=== PATIENT | female | born 1995 | race Caucasian/White ===

== ENCOUNTER 2016-09-16 00:33 | Outpatient (CLI) | payer MEDICAID, OTHER ==
[~2016-09-16] VITALS: Ht 165.1 cm; Wt 109.0 kg
[~2016-09-16 00:33] MED LIST: ACET500C5 PO; BEN25 PO; CEPH-443 PO; IBUP800T25 PO; ONDA4TAB14 PO; [UNRECOGNIZED DRUG - CODE] TP
[2016-09-16 00:56] VITALS: Ht 165.1 cm; Wt 109.0 kg
[2016-09-16 00:57] VITALS: BP 141/66; PULSE 101; RESP 18
[2016-09-16 01:39] LABS: ADD SCAN DIFF NO
[2016-09-16 01:42] LABS: BASOPHILS % 0.2 % (0.0-2.0); EOSINOPHILS # 0.1 10^3/ul (0.0-0.5); HEMOGLOBIN 8.7 g/dl (12.0-16.0); LYMPHOCYTES # 2.3 10^3/ul (0.8-2.9); LYMPHOCYTES % 17.7 % (15.0-51.0); MEAN CORPUSCULAR HEMOGLOBIN 22.4 pg (29.0-33.0); MEAN CORPUSCULAR VOLUME 74.7 fl (82.0-101.0); MEAN PLATELET VOLUME 10.5 fl (7.4-10.4); MONOCYTE # 1.1 10^3/ul (0.3-0.9); MONOCYTES % 8.6 % (0.0-11.0); NEUTROPHIL # 9.2 10^3/ul (1.6-7.5); NEUTROPHILS % 71.3 % (39.0-77.0); NUCLEATED RED BLOOD CELLS% 0.2 /100WBC (0.0-0.0); PLATELET COUNT 282 10^3/UL (140-415); RED BLOOD COUNT 3.88 10^6/ul (4.20-5.40); RED CELL DISTRIBUTION WIDTH 17.3 % (11.5-14.5); WHITE BLOOD COUNT 12.9 10^3/ul (4.8-10.8)
--- NOTE | 2016-09-16 01:45 | PN ---
Date/Time of Note Date/Time of Note DATE: 09/16/16 TIME: 01:43 OB Subjective Subjective Subjective Patient is a 21-year-old 4 para 2 at 28 weeks and 2 days of gestation Patient's prior OB history significant for delivery at 36 weeks of gestation 2 She presents with abdominal pain and occasional contractions OB Objective Objective Objective NST reactive [place] irregular contractions OB Assessment/Plan Reason for admission: other Other Assessment: contractions Other plan: IV fluid OB ultrasound Follow-up with clinic in 2 days MELO GOLDMAN Sep 16, 2016 01:45
[2016-09-16 01:53] LABS: ADD UMIC YES; URINE BILIRUBIN (Dip) NEGATIVE (NEGATIVE); URINE BLOOD (Dip) TRACE (NEGATIVE); URINE COLOR YELLOW (YELLOW); URINE GLUCOSE (Dip) NEGATIVE (NEGATIVE); URINE KETONES (Dip) NEGATIVE (NEGATIVE); URINE LEUKOCYTE ESTERASE (Dip) 3+ (NEGATIVE); URINE NITRITE (Dip) NEGATIVE (NEGATIVE); URINE TOTAL PROTEIN (Dip) NEGATIVE (NEGATIVE); URINE UROBILINOGEN (Dip) 0.2 E.U./dL (0.1-1.0)
[2016-09-16 01:55] LABS: ALBUMIN 3.2 g/dl (3.3-4.9); POTASSIUM 3.5 mmol/L (3.5-5.1)
[2016-09-16 01:57] LABS: CREATININE 0.52 mg/dl (0.44-1.00)
[2016-09-16 01:58] LABS: ALBUMIN/GLOBULIN RATIO 0.94; TOTAL PROTEIN 6.6 g/dl (6.1-8.1)
[2016-09-16 01:59] LABS: CALCIUM 8.5 mg/dl (8.4-10.2)
[2016-09-16] MEDS ORDERED: LACTATED RINGER'S 1,000 ML IV ONE (02:00)
--- NOTE | 2016-09-16 02:05 | RADRPT ---
PROCEDURE: US OB. CLINICAL INDICATION: Contractions. TECHNIQUE: Multiple sonographic images of the pelvis were obtained. Transabdominal imaging only w as performed. The images were reviewed on a PACS workstation. COMPARISON: None. FINDINGS: Single live intrauterine is identified. Cardiac activity is present with 137 beats per mi nute. There is a vertex presentation. Measurements: BPD = 29 weeks 0 days. HC = 29 weeks 1 day. AC = 30 weeks 1 day. FL = 29 weeks 4 days. Estimated gestational age of approximately 29 weeks 3 days. The estimated date of delivery is 11/29/2016. The EFW = 1447 g which is at the 88th percentile. The placenta is posterior fundal. There is no evidence for an abruption or placenta previa. There is a normal amount of amniotic fluid with an CINDY = 14.42 cm. Cervix is 5.85 cm in length and closed. IMPRESSION: Single live intrauterine gestation of approximately 29 weeks 3 days. RPTAT: HMVK .Ridge Chavez MD, Date Time Electronically viewed and signed by .Ridge Chavez MD, on 09/16/2016 02:05 .K/
[2016-09-16 02:47] LABS: BACTERIA,URINE FEW; SQUAMOUS EPITHELIAL CELL,UR MANY
[2016-09-16] MEDS ORDERED: TERBUTALINE 1 MG/ML INJ SC ONE (03:30)
--- NOTE | 2016-09-16 06:31 | TRIAGE ---
OB Triage Datetime Report Generated by CPN: 09/16/2016 06:31 Datetime: 09/16/2016 04:44 Labor Evaluation Frequency: 0 Monitor Mode: External Duration (sec)2399: 0 Pattern: Normal: <= 5 Contractions in 10 Minutes Resting Tone [place]: Relaxed Heart Rate FHR Baseline Rate: 145 Monitor Mode: External US Variability: Moderate 6-25 bpm Accelerations: 15X15 Decelerations: None Category: Category I Datetime: 09/16/2016 04:40 Pain Assessment Pain Scale: 0 Pain Presence: None/Denies Pain Type: N/A Pain Goal: 0 Datetime: 09/16/2016 04:31 Contraction Comments: pt. denies feeling cramping, pain or UC's. Datetime: 09/16/2016 04:00 Labor Evaluation Frequency: occasional Monitor Mode: External Duration (sec)2399: 40 Quality: Mild Pattern: Normal: <= 5 Contractions in 10 Minutes Resting Tone [place]: Relaxed Heart Rate FHR Baseline Rate: 145 Monitor Mode: External US Variability: Moderate 6-25 bpm Accelerations: 10X10 Decelerations: None Category: Category I Datetime: 09/16/2016 03:00 Labor Evaluation Frequency: occasional Monitor Mode: External Duration (sec)2399: 40-50 Quality: Mild Pattern: Normal: <= 5 Contractions in 10 Minutes Resting Tone [place]: Relaxed Heart Rate FHR Baseline Rate: 145 Monitor Mode: External US Variability: Moderate 6-25 bpm Decelerations: None Category: Category I Datetime: 09/16/2016 02:00 Labor Evaluation Frequency: irregular Monitor Mode: External Duration (sec)2399: 40-60 Quality: Mild Pattern: Normal: <= 5 Contractions in 10 Minutes Resting Tone [place]: Relaxed Heart Rate FHR Baseline Rate: 140 Monitor Mode: External US Variability: Moderate 6-25 bpm Accelerations: 15X15 Decelerations: None Category: Category I Datetime: 09/16/2016 01:34 Stage of : OB Triage Datetime: 09/16/2016 01:15 EGA: 28.2 Datetime: 09/16/2016 01:00 Labor Evaluation Frequency: irregular Monitor Mode: External Duration (sec)2399: 40 Quality: Mild Pattern: Normal: <= 5 Contractions in 10 Minutes Resting Tone [place]: Relaxed Heart Rate FHR Baseline Rate: 140 Monitor Mode: External US Variability: Moderate 6-25 bpm Accelerations: 10X10 Decelerations: None Category: Category I Datetime: 09/16/2016 00:55 Stage of : OB Triage Assessment Type: Triage Maternal Assessment Level of Consciousness: Fully Conscious DTR's/Clonus: DTRs 2+; No Clonus Headache: Denies Blurred Vision: No Respiratory Effort: Unlabored Nausea/Vomiting: Denies RUQ Epigastric Pain: Denies Lower Extremities Edema: None Degree: None Upper Extremities Edema: None Degree: None Facial Edema: None Fall Risk Assessment History of Falling: (0) No Secondary Diagnosis: (0) No Ambulatory Aid: (0) Bedrest/Nurse Assist IV Therapy: (0) No Gait: (0) Normal/Bedrest/Immobile Mental Status: (0) Oriented to Own Ability Fall Score: 0 Fall Risk Score Definition: No Risk: No action required Datetime: 09/16/2016 00:54 Time of Arrival: 09/16/2016 00:14 Arrived By: Wheelchair Arrived From: Home Chief Complaint: back pain, abdominal pain q 30 mins - 1 hr. Movement: Present Contractions: Denies/Absent Rupture of Membranes: Denies Vaginal Bleeding: None Vaginal Discharge: Present Recent Sexual Intercouse: Denies Abdominal Trauma: Not Applicable Patient Complaints: Back Pain Time Provider Notified: 09/16/2016 01:02 Provider Notified: Khadijah Initial Plan: nst, cbc, cmp, UA, EFW, CINDY, cervical length
== END 2016-09-16 04:53 | disposition home or self-care (01) ==
LOC: OBT 00:33 → L-D 00:33 → OBT 04:53
PROVIDERS: ATTEND Obstetrics & Gynecology
DX: O60.03 Preterm labor without delivery, third trimester (principal); Z3A.28 28 weeks gestation of pregnancy
CPT/HCPCS: 76815; 76817; 80053; 81001; 85025; 87086; 96372; J3105; J7120; Z7500; 81003; G0463

== ENCOUNTER 2016-09-30 02:00 | Outpatient (CLI) | payer OTHER ==
[~2016-09-30] VITALS: Ht 162.6 cm; Wt 110.9 kg
[2016-09-30 02:15] VITALS: BP 162/70; PULSE 105; RESP 18
[2016-09-30] MEDS ORDERED: PRENAT PO (02:18)
[2016-09-30 03:09] LABS: ADD SCAN DIFF NO
[2016-09-30 03:25] LABS: ALBUMIN 3.2 g/dl (3.3-4.9); INR 1.01; PROTIME 13.3 Sec (12.2-14.2)
[2016-09-30 03:26] LABS: POTASSIUM 3.4 mmol/L (3.5-5.1)
[2016-09-30 03:28] LABS: ALBUMIN/GLOBULIN RATIO 0.88; CREATININE 0.53 mg/dl (0.44-1.00); TOTAL PROTEIN 6.8 g/dl (6.1-8.1)
[2016-09-30 03:29] LABS: CALCIUM 8.9 mg/dl (8.4-10.2); URIC ACID 3.8 mg/dl (3.1-7.9)
[2016-09-30 03:33] LABS: ABNORMAL IP MESSAGE 1; BASOPHILS % 0.3 % (0.0-2.0); EOSINOPHILS # 0.2 10^3/ul (0.0-0.5); EOSINOPHILS % 1.4 % (0.0-7.0); HEMATOCRIT 29.5 % (37.0-47.0); HEMOGLOBIN 8.5 g/dl (12.0-16.0); LYMPHOCYTES # 2.9 10^3/ul (0.8-2.9); LYMPHOCYTES % 22.1 % (15.0-51.0); MEAN CORPUSCULAR HEMOGLOBIN 21.5 pg (29.0-33.0); MEAN CORPUSCULAR HGB CONC 28.8 g/dl (32.0-37.0); MEAN CORPUSCULAR VOLUME 74.7 fl (82.0-101.0); MEAN PLATELET VOLUME 11.5 fl (7.4-10.4); MONOCYTES % 7.8 % (0.0-11.0); NEUTROPHIL # 8.9 10^3/ul (1.6-7.5); NEUTROPHILS % 67.6 % (39.0-77.0); PLATELET COUNT 302 10^3/UL (140-415); RED BLOOD COUNT 3.95 10^6/ul (4.20-5.40); RED CELL DISTRIBUTION WIDTH 18.1 % (11.5-14.5); WHITE BLOOD COUNT 13.2 10^3/ul (4.8-10.8)
--- NOTE | 2016-09-30 03:55 | RADRPT ---
PROCEDURE: ULTRASOUND BIOPHYSICAL PROFILE CLINICAL INDICATION: 21-year-old female in labor for viability. TECHNIQUE: Multiple sonographic images were obtained in order to perform a biophysical profile The images were reviewed on a PACS workstation. COMPARISON: None. FINDINGS: The cervix appears closed with a length of 5.0 cm. There is a single viable intrauterine gestation. There is a breech presentation. Cardiac activity is present at 143 beats per minute. The placenta is posterior and fundal. The results of the biophysical profile are as follows: breathing movement = 2/2 Gross body movement = 2/2 tone = 2/2 Qualitative amniotic fluid volume = 2/2 Amniotic fluid index equals 13.9 cm. This yields a biophysical profile score of 8/8. IMPRESSION: Biophysical profile score is 8/8. .Yang Reynolds MD, MD Date Time Electronically viewed and signed by .Yang Reynolds MD, MD on 09/30/2016 03:55 .M/
--- NOTE | 2016-09-30 03:57 | RADRPT ---
PROCEDURE: ULTRASOUND OBSTETRICAL CLINICAL INDICATION: 21-year-old female in labor for size and date determination. TECHNIQUE: Multiple sonographic images of the pelvis were obtained. The images were reviewed on a PACS workstation. COMPARISON: Ultrasound biophysical profile obtained concurrently. FINDINGS: There is a single viable intrauterine gestation. Cardiac activity is present with 157 beats per min drew. There is a breech presentation. Measurements were made in order to determine age. The res ults are as follows: BPD = 7.86 cm, HC = 28.48 cm, AC = 27.15 cm, FL = 6.19 cm. This yields and estimated gestational ag e of approximately 31 weeks 4 days. The estimated date of delivery is November 28, 2016. The EFW = 1785 +/- 268 g (3 lb 15 oz). The GP is 80%. The placenta is posterior and fundal. There is no evidence for an abruption or placenta previa. IMPRESSION: 1. Single viable intrauterine gestation of approximately 31 weeks 4 days with breech presentation. The estimated date of delivery is 11/2016. 2. The estimated weight is 1785 +/- 268 g (3 lb 15 oz). The GP is 80%. .Yang Reynolds MD, Date Time Electronically viewed and signed by .Yang Reynolds MD, on 09/30/2016 03:57 .Evelyn/
[2016-09-30 03:59] LABS: BILIRUBIN,INDIRECT 0.1 mg/dl (0-1.1); BILIRUBIN,TOTAL 0.1 mg/dl (0.2-1.3)
[2016-09-30 04:26] LABS: ADD UMIC YES; URINE BILIRUBIN (Dip) NEGATIVE (NEGATIVE); URINE BLOOD (Dip) NEGATIVE (NEGATIVE); URINE COLOR LT. YELLOW (YELLOW); URINE GLUCOSE (Dip) NEGATIVE (NEGATIVE); URINE KETONES (Dip) NEGATIVE (NEGATIVE); URINE LEUKOCYTE ESTERASE (Dip) 1+ (NEGATIVE); URINE NITRITE (Dip) NEGATIVE (NEGATIVE); URINE TOTAL PROTEIN (Dip) NEGATIVE (NEGATIVE); URINE UROBILINOGEN (Dip) 0.2 E.U./dL (0.1-1.0)
[2016-09-30 04:44] LABS: BACTERIA,URINE FEW; MUCUS,URINE FEW; SQUAMOUS EPITHELIAL CELL,UR FEW; URINE RBCS 0-2 /HPF (0)
--- NOTE | 2016-09-30 05:15 | QN ---
Documentation Comment OB Triage: #30+ wks GA for R/o PPROM ,Woke up an see some fluids around her,not sure if it was urine (smells urine)+FM No VB NoCTXs ROM plus:Neg CXL 5 cm CINDY>13 BPP / NST reassuring --->patient will return tomorrow for another NST/BPP --->precautions and instructions discussed with patient in details NATALY ZULETA M.D. Sep 30, 2016 05:15
--- NOTE | 2016-09-30 05:37 | TRIAGE ---
OB Triage Datetime Report Generated by CPN: 09/30/2016 05:37 Datetime: 09/30/2016 05:14 Heart Rate FHR Baseline Rate: 145 Monitor Mode: External US Datetime: 09/30/2016 05:08 Stage of : OB Triage Datetime: 09/30/2016 05:00 Stage of : OB Triage Monitor Mode: External US Comments: Baby active. Pt frequently changing position and difficult to monitor baby Datetime: 09/30/2016 03:56 Stage of : OB Triage Labor Evaluation Monitor Mode: External Quality: Mild Pattern: Normal: <= 5 Contractions in 10 Minutes Resting Tone [place]: Relaxed Heart Rate FHR Baseline Rate: 145 Monitor Mode: External US Pain Assessment Pain Scale: 3 Pain Presence: Intermittent Pain Type: Cramping Pain Location: Abdomen Datetime: 09/30/2016 02:45 Stage of : OB Triage Datetime: 09/30/2016 02:34 Labor Evaluation Monitor Mode: External Duration (sec)2399: 10-30SEC Quality: Mild Pattern: Normal: <= 5 Contractions in 10 Minutes Resting Tone [place]: Relaxed Heart Rate FHR Baseline Rate: 140 Monitor Mode: External US FHR Baseline Changes: No Baseline Change Variability: Moderate 6-25 bpm Accelerations: 15X15 Decelerations: None Category: Category I Pain Assessment Pain Scale: 4 Pain Presence: Intermittent Pain Type: Cramping Pain Location: Abdomen Vaginal Exam Dilatation (cms): 0.0 Effacement (%): 0 Station: -4 Exam By: E Petar Amniotic Fluid Amount: None Amniotic Fluid Odor: None Vaginal Bleeding: None Pool: Negative Nitrazine: Negative Cervix, Consistency: Firm Cervix, Position: Posterior Presentation 'A': Cephalic Lie 'A': Unable to Assess Datetime: 09/30/2016 02:06 Stage of : OB Triage Maternal Assessment Level of Consciousness: Fully Conscious DTR's/Clonus: DTRs 2+; No Clonus Headache: Denies Blurred Vision: No Respiratory Effort: Unlabored Nausea/Vomiting: Hx of Nausea/Vomiting RUQ Epigastric Pain: Denies Facial Edema: None Labor Evaluation Monitor Mode: External Resting Tone [place]: Relaxed Monitor Mode: External US Comments: FHT 150 Pain Assessment Pain Scale: 4 Pain Presence: Intermittent Pain Type: Cramping Pain Location: Abdomen Datetime: 09/30/2016 02:03 Time of Arrival: 09/30/2016 01:56 EGA: 30.2 Arrived By: Wheelchair Arrived From: Home Chief Complaint: w/ hx 2 PTD to triage w/ c/o waking up in large puddle of fluid at 0130. Movement: Present Contractions: Occasional Time Contractions Began: 09/30/2016 01:30 Rupture of Membranes: Unsure Vaginal Bleeding: None Vaginal Discharge: Present Recent Sexual Intercouse: Denies Abdominal Trauma: Not Applicable Patient Complaints: Cramping Time Provider Notified: 09/30/2016 02:45 Provider Notified: Dr Curiel Initial Plan: EFM,SVE,ROM,CVL,BPP,EFW,PIH panel Datetime: 09/16/2016 01:15 EGA: 28.2 Datetime: 09/16/2016 00:55 Fall Risk Assessment Fall Score: 0 Fall Risk Score Definition: No Risk: No action required
== END 2016-09-30 05:27 | disposition home or self-care (01) ==
LOC: OBT 02:00 → L-D 02:00 → OBT 05:27
PROVIDERS: ATTEND Obstetrics & Gynecology
DX: O42.913 Preterm premature rupture of membranes, unspecified as to length of time between rupture and onset of labor, third trimester (principal); Z3A.30 30 weeks gestation of pregnancy
CPT/HCPCS: 36415; 76815; 76817; 76818; 80053; 81001; 84112; 84560; 85025; 85610; 85730; Z7500; 81003; G0463

== ENCOUNTER 2016-09-30 13:51 | Outpatient (CLI) | payer OTHER ==
[~2016-09-30] VITALS: Ht 165.1 cm; Wt 111.3 kg
[~2016-09-30 13:51] MED LIST changes: -ACET500C5 PO; -BEN25 PO; -CEPH-443 PO; -IBUP800T25 PO; -ONDA4TAB14 PO; +PRENAT PO; -[UNRECOGNIZED DRUG - CODE] TP
[2016-09-30 14:10] VITALS: Ht 165.1 cm; Wt 111.3 kg
[2016-09-30 14:11] VITALS: BP 123/72; PULSE 108; RESP 20
[2016-09-30] MEDS ORDERED: TERBUTALINE 1 MG/ML INJ SC ONE (14:30)
--- NOTE | 2016-09-30 18:52 | TRIAGE ---
OB Triage Datetime Report Generated by CPN: 09/30/2016 18:51 Datetime: 09/30/2016 18:00 Frequency: NONE AT THIS TIME Pattern: Normal: <= 5 Contractions in 10 Minutes FHR Baseline Rate: 150 Monitor Mode: External US FHR Baseline Changes: No Baseline Change Variability: Moderate 6-25 bpm Accelerations: 15X15 Decelerations: None Category: Category I Pain Scale: 0 Pain Presence: None/Denies Pain Goal: 3 Membrane Status: Intact Datetime: 09/30/2016 16:40 Frequency: irreg Monitor Mode: External Quality: Mild Pattern: Normal: <= 5 Contractions in 10 Minutes Resting Tone [place]: Relaxed FHR Baseline Rate: 145 Monitor Mode: External US FHR Baseline Changes: No Baseline Change Variability: Moderate 6-25 bpm Accelerations: 15X15 Decelerations: None Category: Category I Pain Scale: 4 Pain Presence: Intermittent Pain Type: Contraction Pain Location: Abdomen Pain Goal: 4 Membrane Status: Intact Datetime: 09/30/2016 15:10 Frequency: IRREG Quality: Moderate Pattern: Normal: <= 5 Contractions in 10 Minutes Resting Tone [place]: Relaxed FHR Baseline Rate: 150 Monitor Mode: External US FHR Baseline Changes: No Baseline Change Variability: Moderate 6-25 bpm Accelerations: 15X15 Decelerations: None Category: Category I Pain Scale: 5 Pain Presence: Intermittent Pain Type: Contraction Pain Location: Abdomen Pain Goal: 5 Datetime: 09/30/2016 14:55 Monitor Mode: External Pattern: Normal: <= 5 Contractions in 10 Minutes Resting Tone [place]: Relaxed FHR Baseline Rate: 150 Monitor Mode: External US FHR Baseline Changes: No Baseline Change Variability: Moderate 6-25 bpm Accelerations: 15X15 Decelerations: None Category: Category I Pain Scale: 6 Pain Presence: Intermittent Pain Type: Contraction Pain Location: Abdomen Pain Goal: 3 Membrane Status: Intact Datetime: 09/30/2016 14:06 Level of Consciousness: Fully Conscious DTR's/Clonus: DTRs 2+ Headache: Denies Blurred Vision: No Nausea/Vomiting: Denies RUQ Epigastric Pain: Denies Facial Edema: None Pattern: Normal: <= 5 Contractions in 10 Minutes FHR Baseline Rate: 145 Monitor Mode: External US FHR Baseline Changes: No Baseline Change Variability: Moderate 6-25 bpm Accelerations: 15X15 Decelerations: None Category: Category I Pain Scale: 6 Pain Presence: Intermittent Pain Type: Contraction Pain Location: Abdomen Pain Goal: 4 Datetime: 09/30/2016 14:05 Time of Arrival: 09/30/2016 14:05 EGA: 30.2 Arrived By: Ambulatory Arrived From: Home Chief Complaint: LOWER ABD PAIN Movement: Decreased Rupture of Membranes: Denies Vaginal Bleeding: None Vaginal Discharge: Denies Recent Sexual Intercouse: Denies Abdominal Trauma: Not Applicable Patient Complaints: Contractions Initial Plan: EFM,CALL DR LAY Level of Consciousness: Fully Conscious DTR's/Clonus: DTRs 2+; No Clonus Headache: Denies Blurred Vision: No Respiratory Effort: Unlabored; Regular Rhythm; Equal Expansion Breath Sounds, Left: Clear and Equal Breath Sounds, Right: Clear and Equal Nausea/Vomiting: Denies RUQ Epigastric Pain: Denies Facial Edema: None Temperature Route: Axillary History of Falling: (0) No Secondary Diagnosis: (0) No Ambulatory Aid: (0) Bedrest/Nurse Assist IV Therapy: (0) No Gait: (0) Normal/Bedrest/Immobile Mental Status: (0) Oriented to Own Ability Fall Score: 0 Fall Risk Score Definition: No Risk: No action required Datetime: 09/30/2016 02:03 EGA: 30.2
--- NOTE | 2016-09-30 19:32 | PN ---
Date/Time of Note Date/Time of Note DATE: 09/30/16 TIME: 19:03 OB Subjective Subjective Subjective 21 yo P0202 @ 30.2 wks presents w ctx. Good FM, no LOF, no VB. Patient was seen in triage yesterday with the same complaints. She had a sono showing nml CINDY and cervical length of 5cm POB- x 2 @ 36wks OB Objective Objective Objective 123/72, 108, 20, 97.6 Abdomen- gravid, n/t SVE- l/c/p FHT- Cat I [place]- irreg ctx Abdomen: WNL Accelerations: Accelerations Present Decelerations: No Decelerations Varibility: Moderate Contractions on Admission: >10 Minutes Apart Intensity: Mild OB Assessment/Plan Other plan: 21 yo P0202 @ 30.2 wks, c/o ctx - she had a w/u yesterday, including sono and cervical length - exam today shows cervix to be l/c/p - patient reassured; will d/c home w strict PTL precautions; baby is breech; patient counselled to return immediately if ROM (as cord could prolapse), increase in ctx intensity and frequency, vaginal bleeding or decreased movement KYARA MCARTHUR MD Sep 30, 2016 19:29
== END 2016-09-30 18:55 | disposition home or self-care (01) ==
LOC: OBT 13:51 → L-D 13:51 → OBT 18:55
PROVIDERS: ATTEND Obstetrics & Gynecology
DX: O47.03 False labor before 37 completed weeks of gestation, third trimester (principal); Z3A.30 30 weeks gestation of pregnancy
CPT/HCPCS: J3105; Z7500; G0463

== ENCOUNTER 2016-10-01 10:43 | Outpatient (CLI) | payer OTHER ==
[~2016-10-01] VITALS: Ht 165.1 cm; Wt 111.4 kg
[2016-10-01 11:04] VITALS: Ht 165.1 cm; Wt 111.4 kg
[2016-10-01 11:05] VITALS: BP 110/57; PULSE 101; RESP 18
--- NOTE | 2016-10-01 12:45 | RADRPT ---
PROCEDURE: US OB. CLINICAL INDICATION: labor TECHNIQUE: Transabdominal OB views of the pelvis are available for review. COMPARISON: September 30, 2016 FINDINGS: Within the uterus, there is a single, live intrauterine . The presentation is now cephalic . The heart rate is 152 beats per minute. The cervix is noted to be closed, and transvaginally measures 4.9 cm. This is stable. The placenta is posterior, grade 2 to 3. IMPRESSION: 1. Single live intrauterine now in cephalic presentation. The cervix is closed and measu res 4.9 cm. RPTAT: QQ .Colleen Lara MD, MD Date Time Electronically viewed and signed by .Colleen Lara MD, MD on 10/01/2016 12:45 .F/
[2016-10-01] MEDS ORDERED: NIFEdipine 10 MG CAP ONE (13:14)
[2016-10-01] MEDS ORDERED: NIFEdipine 10 MG CAP PO ONE (13:17)
--- NOTE | 2016-10-01 13:29 | TRIAGE ---
OB Triage Datetime Report Generated by CPN: 10/01/2016 13:29 Datetime: 10/01/2016 13:07 Pattern: Normal: <= 5 Contractions in 10 Minutes Resting Tone [place]: Relaxed Contraction Comments: NO UC FHR Baseline Rate: 145 Monitor Mode: External US Variability: Moderate 6-25 bpm Accelerations: 15X15 Decelerations: None Category: Category I Pain Scale: 6 Pain Presence: Intermittent Pain Type: Cramping Pain Location: Abdomen Pain Goal: 3 Datetime: 10/01/2016 11:50 Frequency: X1 Monitor Mode: External Duration (sec)2399: 60 Quality: Mild Pattern: Normal: <= 5 Contractions in 10 Minutes Resting Tone [place]: Relaxed FHR Baseline Rate: 145 Monitor Mode: External US Variability: Moderate 6-25 bpm Accelerations: 15X15 Decelerations: None Category: Category I Pain Scale: 3 Pain Presence: Intermittent Pain Type: Cramping Pain Location: Abdomen Pain Goal: 3 Datetime: 10/01/2016 11:00 Stage of : OB Triage Level of Consciousness: Fully Conscious DTR's/Clonus: DTRs 2+; No Clonus Headache: Denies Blurred Vision: No Respiratory Effort: Unlabored; Regular Rhythm; Equal Expansion Breath Sounds, Left: Clear and Equal Breath Sounds, Right: Clear and Equal Nausea/Vomiting: Denies RUQ Epigastric Pain: Denies Lower Extremities Edema: None Degree: None Upper Extremities Edema: None Degree: None Facial Edema: None Temperature Route: Axillary History of Falling: (0) No Secondary Diagnosis: (0) No Ambulatory Aid: (0) Bedrest/Nurse Assist IV Therapy: (0) No Gait: (0) Normal/Bedrest/Immobile Mental Status: (0) Oriented to Own Ability Fall Score: 0 Fall Risk Score Definition: No Risk: No action required Frequency: cramps Monitor Mode: External Quality: Mild FHR Baseline Rate: 145 Monitor Mode: External US Variability: Moderate 6-25 bpm Accelerations: 15X15 Decelerations: None Pain Scale: 4 Pain Presence: Constant Pain Type: Cramping Pain Location: Abdomen Datetime: 10/01/2016 10:56 Time of Arrival: 10/01/2016 10:56 EGA: 30.3 Arrived By: Wheelchair Arrived From: Home Chief Complaint: cramping, follow up from yesterday Movement: Present Contractions: Occasional Time Contractions Began: 09/30/2016 17:00 Contractions: 30 Rupture of Membranes: Denies Vaginal Bleeding: None Vaginal Discharge: Denies Recent Sexual Intercouse: Denies Abdominal Trauma: Not Applicable Patient Complaints: Cramping Time Provider Notified: 10/01/2016 11:33 Provider Notified: andres Initial Plan: EFM/ U/S cxl
--- NOTE | 2016-10-01 15:50 | PN ---
DATE: 10/01/2016 The patient is a 21-year-old who presents at 30 weeks complaining of uterine cramping. The patient had been found to be positive movement. PAST MEDICAL HISTORY: None. PAST SURGICAL HISTORY: None. PHYSICAL EXAMINATION: VITAL SIGNS: Within normal limits. Within normal limits. Ultrasound shows a cervical greater than 3.5. ASSESSMENT: Intrauterine at 30 weeks. The patient is discharged home. Follow up in OB-GY N within 1-2 days. Dictated By: ESTER SHAW MD /NTS Conf#: [id number] DID#: [id number] CC: SARA OLIVARES MD;*EndCC*
== END 2016-10-01 13:20 | disposition home or self-care (01) ==
LOC: L-D 10:43 → OBT 10:43
PROVIDERS: ATTEND Obstetrics & Gynecology
DX: O62.9 Abnormality of forces of labor, unspecified (principal); Z3A.30 30 weeks gestation of pregnancy
CPT/HCPCS: 76817; Z7500; Z7610; G0463

== ENCOUNTER 2016-10-08 13:07 | Outpatient (CLI) | payer OTHER ==
[~2016-10-08] VITALS: Ht 165.1 cm; Wt 112.6 kg
[2016-10-08 13:27] VITALS: BP 129/66; PULSE 108; Ht 165.1 cm; Wt 112.6 kg
--- NOTE | 2016-10-08 14:16 | RADRPT ---
PROCEDURE: US OB. CLINICAL INDICATION: Fall. Pelvic pressure TECHNIQUE: Multiple sonographic images of the pelvis were obtained. The images were reviewed on a PACS workstation. COMPARISON: Ultrasound 10/01/2016 FINDINGS: The cervix is closed. There is a single viable intrauterine gestation. Cardiac activity is present with 152 beats per min [place]. There is a cephalic presentation. Measurements were made in order to determine age. The results are as follows: BPD =7.91 cm; 31 weeks 5-day HC =28.79 cm; 31 weeks 5 days AC =29.69 cm; 33 weeks 5-day FL =6.42 cm; 33 weeks 1 day. Estimated gestational age of approximately 32 weeks 4 days plus/minus 2 weeks 2 days. The estimated date of delivery is 11/29/2016. The EFW = 2124 g plus/minus 318 g . The placenta is fundal/right lateral and grade 1. There is no evidence for an abruption or placenta previa. There are no adnexal masses.. IMPRESSION: Single viable intrauterine gestation of approximately 32 weeks 4 days. The estimated date of delive ry is 11/29/2016 . .Kenia Cifuentes MD, Date Time Electronically viewed and signed by .Kenia Cifuentes MD, on 10/08/2016 14:16 .M/
--- NOTE | 2016-10-08 14:18 | RADRPT ---
PROCEDURE: US OB biophysical profile. CLINICAL INDICATION: decreased movements, pelvic pressure TECHNIQUE: Multiple sonographic images of the pelvis were obtained. The images were reviewed on a PACS workstation. COMPARISON: 10/08/16 FINDINGS: There is a single viable intrauterine gestation. Cardiac activity is present with 150 beats per min [place]. There is a vertex presentation. The placenta is fundal. There is no evidence of placental abruption. There is a normal amount of amniotic fluid with an CINDY = 15.7 cm. Biophysical profile: movement 2/2 tone 2/2. breathing 2/2 CINDY 2/2 Total 01/30 RPTAT: AA . IMPRESSION: Normal biophysical profile. . .Neymar Rizo MD, MD Date Time Electronically viewed and signed by .Neymar Rizo MD, MD on 10/08/2016 14:18 .S/
[2016-10-08] MEDS ORDERED: TERBUTALINE 1 ML ONE (15:44)
[2016-10-08] MEDS ORDERED: TERBUTALINE 1 MG/ML INJ SC ONE ×2 (16:00→16:20)
[2016-10-08] MEDS ORDERED: LACTATED RINGER'S 1,000 ML IV SCH (16:00)
--- NOTE | 2016-10-08 17:51 | QN ---
Documentation Comment pt co of increasing Ucx no lof no bleeding good FM vss exam wnl nst reactive a/p iup 31 weeks status post fall cbc,fibrinogen US ESTER SHAW MD Oct 08, 2016 17:51
[2016-10-08] MEDS ORDERED: ACETAMINOPHEN 325 MG TAB PO ONE (18:00)
[2016-10-08 18:29] LABS: ADD SCAN DIFF NO
[2016-10-08 18:34] LABS: BASOPHILS % 0.2 % (0.0-2.0); EOSINOPHILS % 0.3 % (0.0-7.0); HEMATOCRIT 25.1 % (37.0-47.0); HEMOGLOBIN 7.4 g/dl (12.0-16.0); LYMPHOCYTES # 2.3 10^3/ul (0.8-2.9); LYMPHOCYTES % 16.8 % (15.0-51.0); MEAN CORPUSCULAR HEMOGLOBIN 21.7 pg (29.0-33.0); MEAN CORPUSCULAR HGB CONC 29.5 g/dl (32.0-37.0); MEAN CORPUSCULAR VOLUME 73.6 fl (82.0-101.0); MEAN PLATELET VOLUME 10.8 fl (7.4-10.4); MONOCYTE # 1.1 10^3/ul (0.3-0.9); MONOCYTES % 8.1 % (0.0-11.0); NEUTROPHILS % 73.4 % (39.0-77.0); PLATELET COUNT 246 10^3/UL (140-415); RED BLOOD COUNT 3.41 10^6/ul (4.20-5.40); RED CELL DISTRIBUTION WIDTH 17.9 % (11.5-14.5); WHITE BLOOD COUNT 13.7 10^3/ul (4.8-10.8)
--- NOTE | 2016-10-08 19:01 | RADRPT ---
PROCEDURE: CERVICAL LENGTH ULTRASOUND CLINICAL INDICATION: Fall. TECHNIQUE: Trans-vaginal imaging of the cervical canal was performed utilizing martines-scale imaging. Sagittal and transverse images were obtained. Trans-abdominal images were also obtained. The taylor ges were reviewed on a PACS workstation. COMPARISON: 10/08/2016. FINDINGS: The cervix is closed with a length of 5.8 cm. There is a single live intrauterine . heart rate is 154 beats per minute. Position is cephalic and placenta is posterior, fundal, grade 2. IMPRESSION: 1. Cervical length measures 5.8 cm. RPTAT: HH .Maria Victoria Salas MD, Date Time Electronically viewed and signed by .Maria Victoria Salas MD, MD on 10/08/2016 19:01 .N/
--- NOTE | 2016-10-08 22:43 | QN ---
Documentation Comment Laborist 21 y.o. A2 with an IUP at 31w 3d s/p fall down stairs. Pt reports she was trying to keep her 1 y.o. from falling down the stairs but she fell and slid initially on her bottom and then rolled the last part. She tried to stop herself by grabbing the railing which didn't work but in doing so her waist hurts and her arm hurts. Does not specifically feel cramps in her pelvis now after IV hydration and terbutaline 0.25SQ x 2. No VB. No leaking. PMHx: recurrent kidney infections and some kind of biopsy of her kidneys at age 13. PSHx: appendectomy. NKDA. 129/66. T=97.8 BPP 8/8. CINDY 15.7. KB negative. EFW 2124 grams Cervical length 5.8cm. Hgb 7.4. NST 140-150 bpm with accels to 180 bpm. No decels. No UC's. A: IUP at 31w 3d. S/P fall. P: D/C IV and D/C home. ALEXSANDER LAY MD Oct 08, 2016 22:43
--- NOTE | 2016-10-08 23:54 | TRIAGE ---
OB Triage Datetime Report Generated by CPN: 10/08/2016 23:54 Datetime: 10/08/2016 22:25 Stage of : OB Triage Datetime: 10/08/2016 22:23 Stage of : OB Triage Datetime: 10/08/2016 21:58 Stage of : OB Triage Labor Evaluation Frequency: 0 Monitor Mode: External Resting Tone [place]: Relaxed Heart Rate FHR Baseline Rate: 150 Monitor Mode: External US Variability: Moderate 6-25 bpm Accelerations: 15X15 Decelerations: None Category: Category I Datetime: 10/08/2016 20:59 Stage of : OB Triage Labor Evaluation Frequency: 0 Monitor Mode: External Resting Tone [place]: Relaxed Heart Rate FHR Baseline Rate: 145 Monitor Mode: External US Variability: Moderate 6-25 bpm Accelerations: 15X15 Decelerations: None Category: Category I Datetime: 10/08/2016 20:54 Stage of : OB Triage Datetime: 10/08/2016 20:24 Stage of : OB Triage Datetime: 10/08/2016 20:19 Stage of : OB Triage Datetime: 10/08/2016 20:00 Stage of : OB Triage Labor Evaluation Frequency: 0 Monitor Mode: External Resting Tone [place]: Relaxed Heart Rate FHR Baseline Rate: 150 Monitor Mode: External US Variability: Moderate 6-25 bpm Accelerations: 15X15 Decelerations: None Category: Category I Datetime: 10/08/2016 19:53 Stage of : OB Triage Datetime: 10/08/2016 19:25 Stage of : OB Triage Datetime: 10/08/2016 19:12 Stage of : OB Triage Datetime: 10/08/2016 17:37 Stage of : OB Triage Datetime: 10/08/2016 16:27 Labor Evaluation Frequency: 5-6 Monitor Mode: External Duration (sec)2399: 30-40 Quality: Mild Resting Tone [place]: Relaxed Heart Rate FHR Baseline Rate: 150 Monitor Mode: External US Variability: Moderate 6-25 bpm Decelerations: None Category: Category II Pain Assessment Pain Scale: 5 Pain Presence: Intermittent Pain Type: Cramping Pain Location: Abdomen Pain Goal: 3 Pain Relief Measures: Comfort Measures Datetime: 10/08/2016 15:09 Labor Evaluation Frequency: 2-5 Monitor Mode: External Duration (sec)2399: 30-40 Quality: Mild Pattern: Normal: <= 5 Contractions in 10 Minutes Resting Tone [place]: Relaxed Heart Rate FHR Baseline Rate: 145 Monitor Mode: External US Variability: Moderate 6-25 bpm Accelerations: 10X10 Decelerations: None Category: Category I Pain Assessment Pain Scale: 5 Pain Presence: Intermittent Pain Type: Cramping Pain Goal: 3 Pain Relief Measures: Comfort Measures Datetime: 10/08/2016 14:16 Labor Evaluation Frequency: 0 Monitor Mode: External Pattern: Normal: <= 5 Contractions in 10 Minutes Resting Tone [place]: Relaxed Heart Rate FHR Baseline Rate: 145 Monitor Mode: External US Variability: Moderate 6-25 bpm Accelerations: 10X10 Decelerations: None Category: Category I Pain Assessment Pain Scale: 7 Pain Presence: Intermittent Pain Goal: 3 Datetime: 10/08/2016 13:22 Stage of : OB Triage Assessment Type: Triage Maternal Assessment Level of Consciousness: Fully Conscious DTR's/Clonus: DTRs 2+; No Clonus Headache: Denies Blurred Vision: No Respiratory Effort: Unlabored; Regular Rhythm; Equal Expansion Breath Sounds, Left: Clear and Equal Breath Sounds, Right: Clear and Equal Nausea/Vomiting: Denies RUQ Epigastric Pain: Denies Facial Edema: None Temperature Route: Axillary Fall Risk Assessment History of Falling: (0) No Secondary Diagnosis: (0) No Ambulatory Aid: (0) Bedrest/Nurse Assist IV Therapy: (0) No Gait: (0) Normal/Bedrest/Immobile Mental Status: (0) Oriented to Own Ability Fall Score: 0 Fall Risk Score Definition: No Risk: No action required Labor Evaluation Frequency: 0 Monitor Mode: External Resting Tone [place]: Relaxed Heart Rate FHR Baseline Rate: 145 Monitor Mode: External US Variability: Moderate 6-25 bpm Decelerations: None Category: Category II Pain Assessment Pain Scale: 8 Pain Presence: Intermittent Pain Type: Cramping Pain Location: Abdomen Pain Goal: 3 Pain Relief Measures: Comfort Measures Datetime: 10/08/2016 13:20 Time of Arrival: 10/08/2016 13:05 EGA: 31.3 Arrived By: Ambulatory Arrived From: Home Chief Complaint: FELL AT APPROX 1230 DOWN A FLIGHT OF STAIRS HITTING ABDOMEN ON RAILING, C/O VAGI NAL PRESSURE, CRAMPS. DENIES BLEEDING OR LEAKING OF FLUID Movement: Decreased Contractions: Occasional Rupture of Membranes: Denies Vaginal Bleeding: None Vaginal Discharge: Denies Recent Sexual Intercouse: Yes Abdominal Trauma: Fall Patient Complaints: Cramping Initial Plan: MONITOR, BPP/CINDY, KB, TYPE /RH, EFW,CBC, FIBRINOGEN,CL Datetime: 10/01/2016 11:00 Fall Score: 0 Fall Risk Score Definition: No Risk: No action required Datetime: 10/01/2016 10:56 EGA: 30.3 Datetime: 09/30/2016 14:05 EGA: 30.2 Fall Score: 0 Fall Risk Score Definition: No Risk: No action required Datetime: 09/30/2016 02:03 EGA: 30.2 Datetime: 09/16/2016 01:15 EGA: 28.2 Datetime: 09/16/2016 00:55 Fall Score: 0 Fall Risk Score Definition: No Risk: No action required
== END 2016-10-08 22:30 | disposition home or self-care (01) ==
LOC: OBT 13:07 → L-D 13:08 → OBT 22:30
PROVIDERS: ATTEND Obstetrics & Gynecology
DX: O9A.213 Injury, poisoning and certain other consequences of external causes complicating pregnancy, third trimester (principal); O62.9 Abnormality of forces of labor, unspecified; O36.8130 Decreased fetal movements, third trimester, not applicable or unspecified; R10.2 Pelvic and perineal pain; W10.9XXA Fall (on) (from) unspecified stairs and steps, initial encounter; Z3A.31 31 weeks gestation of pregnancy
CPT/HCPCS: 36415; 76815; 76817; 76818; 85025; 85384; 85460; 86900; 86901; 96360; 96361; 96372; J3105; J7120; Z7500; Z7610; G0463

== ENCOUNTER 2016-10-17 17:14 | Outpatient (CLI) | payer OTHER ==
[~2016-10-17] VITALS: Ht 165.1 cm; Wt 114.9 kg
[~2016-10-17 17:14] MED LIST changes: +ACET500C5 PO; +BEN25 PO; +CEPH-443 PO; +FERR-55 BC; +FERR28TA PO; +IBUP800T25 PO; +ONDA4TAB14 PO; +PNV1TABL43 PO; +[UNRECOGNIZED DRUG - CODE] TP
[2016-10-17 17:34] VITALS: Ht 165.1 cm; Wt 114.9 kg
[2016-10-17 17:35] VITALS: BP 129/61
--- NOTE | 2016-10-17 19:19 | RADRPT ---
PROCEDURE: Limited obstetric ultrasound CLINICAL INDICATION: Pain , contractions TECHNIQUE: Multiple transverse and longitudinal grayscale images of the pelvis were obtained shaver sabdominally and transvaginally.. COMPARISON: 10/08/2016 FINDINGS: The cervix is closed with a length of 5.1 cm. There is a single viable intrauterine gestation. Cardiac activity is present with 134 beats per min samish. The placenta is posterior fundal. There is no evidence for an abruption or placenta previa. RPTAT: AA IMPRESSION: Cervix length measures 5.1 cm. .Neymar Rizo MD, MD Date Time Electronically viewed and signed by .Neymar Rizo MD, on 10/17/2016 19:19 .S/
--- NOTE | 2016-10-17 20:36 | QN ---
Documentation Comment OB TRIAGE 21 y/o 32+ weeks with c/o pelvic pressure. Patient denies leakage of fluid or vaginal bleeding. Patient reports good movement. Afebrile VSS Abdomen soft NT Cervix closed OB ultrasound normal cervical length. Strip Reactive No sign of labor D/C home. ANTONI REYNAGA MD Oct 17, 2016 20:36
--- NOTE | 2016-10-17 20:46 | TRIAGE ---
OB Triage Datetime Report Generated by CPN: 10/17/2016 20:46 Datetime: 10/17/2016 20:35 Arrived From: Home Datetime: 10/17/2016 20:29 Labor Evaluation Frequency: NONE Monitor Mode: External Duration (sec)2399: NONE Heart Rate FHR Baseline Rate: 135 Monitor Mode: External US Variability: Moderate 6-25 bpm Accelerations: 15X15 Decelerations: None Category: Category I Datetime: 10/17/2016 20:25 Vaginal Exam Dilatation (cms): 0.0 Effacement (%): 0 Station: -3 Exam By: Dr. Delshad Membrane Status: Intact Datetime: 10/17/2016 20:18 Pain Assessment Pain Scale: 0 Pain Presence: None/Denies Pain Type: N/A Datetime: 10/17/2016 20:00 Labor Evaluation Frequency: NONE Monitor Mode: External Heart Rate FHR Baseline Rate: 135 Monitor Mode: External US Variability: Moderate 6-25 bpm Accelerations: 15X15 Decelerations: None Category: Category I Datetime: 10/17/2016 19:24 Monitor Mode: Palpation Resting Tone [place]: Relaxed Pain Assessment Pain Scale: 6 Pain Presence: Intermittent Pain Type: Cramping; Pressure Pain Location: Abdomen Datetime: 10/17/2016 18:46 Pain Assessment Pain Scale: 7 Pain Presence: Intermittent Pain Type: Cramping Pain Location: Abdomen Pain Goal: 3 Datetime: 10/17/2016 17:39 Stage of : OB Triage Assessment Type: Triage Maternal Assessment Level of Consciousness: Fully Conscious DTR's/Clonus: DTRs 2+; No Clonus Headache: Denies Blurred Vision: No Respiratory Effort: Unlabored; Regular Rhythm; Equal Expansion Breath Sounds, Left: Clear and Equal Breath Sounds, Right: Clear and Equal Nausea/Vomiting: Denies RUQ Epigastric Pain: Denies Lower Extremities Edema: None Degree: None Upper Extremities Edema: None Degree: None Facial Edema: None Temperature Route: Oral Fall Risk Assessment History of Falling: (0) No Secondary Diagnosis: (0) No Ambulatory Aid: (0) Bedrest/Nurse Assist IV Therapy: (0) No Gait: (0) Normal/Bedrest/Immobile Mental Status: (0) Oriented to Own Ability Fall Score: 0 Fall Risk Score Definition: No Risk: No action required Monitor Mode: External Heart Rate FHR Baseline Rate: 145 Monitor Mode: External US Variability: Moderate 6-25 bpm Accelerations: 15X15 Decelerations: None Category: Category I Pain Assessment Pain Scale: 7 Pain Presence: Intermittent Pain Type: Cramping; Contraction Pain Location: Abdomen Pain Goal: 3 Datetime: 10/08/2016 22:30 Time of Arrival: 10/17/2016 17:12 EGA: 32.5 Arrived By: Ambulatory Arrived From: Home Chief Complaint: PRESSSURE, UC'S Movement: Present Contractions: Regular Time Contractions Began: 10/17/2016 13:30 Contractions: X4/ HOUR Rupture of Membranes: Denies Vaginal Bleeding: None Vaginal Discharge: Denies Recent Sexual Intercouse: Denies Abdominal Trauma: Not Applicable Patient Complaints: Contractions Time Provider Notified: 10/17/2016 18:20 Provider Notified: DR. REID Initial Plan: EFMX2, CALL MD Datetime: 10/08/2016 13:22 Fall Score: 0 Fall Risk Score Definition: No Risk: No action required Datetime: 10/08/2016 13:20 EGA: 31.3 Datetime: 10/01/2016 11:00 Fall Score: 0 Fall Risk Score Definition: No Risk: No action required Datetime: 10/01/2016 10:56 EGA: 30.3 Datetime: 09/30/2016 14:05 EGA: 30.2 Fall Score: 0 Fall Risk Score Definition: No Risk: No action required Datetime: 09/30/2016 02:03 EGA: 30.2 Datetime: 09/16/2016 01:15 EGA: 28.2 Datetime: 09/16/2016 00:55 Fall Score: 0 Fall Risk Score Definition: No Risk: No action required
== END 2016-10-17 20:40 | disposition home or self-care (01) ==
LOC: OBT 17:14 → L-D 17:14 → OBT 20:40
PROVIDERS: ATTEND Obstetrics & Gynecology
DX: O26.893 Other specified pregnancy related conditions, third trimester (principal); R10.2 Pelvic and perineal pain; Z3A.32 32 weeks gestation of pregnancy
CPT/HCPCS: 76817; Z7500; G0463

== ENCOUNTER 2016-10-20 08:39 | Outpatient (CLI) | payer OTHER ==
[~2016-10-20 08:39] MED LIST changes: -ACET500C5 PO; -BEN25 PO; -CEPH-443 PO; -FERR-55 BC; -FERR28TA PO; -IBUP800T25 PO; -ONDA4TAB14 PO; -PNV1TABL43 PO; -[UNRECOGNIZED DRUG - CODE] TP
[2016-10-20 09:51] LABS: ADD UMIC YES; URINE BILIRUBIN (Dip) NEGATIVE (NEGATIVE); URINE BLOOD (Dip) NEGATIVE (NEGATIVE); URINE COLOR LT. YELLOW (YELLOW); URINE GLUCOSE (Dip) NEGATIVE (NEGATIVE); URINE KETONES (Dip) NEGATIVE (NEGATIVE); URINE LEUKOCYTE ESTERASE (Dip) 2+ (NEGATIVE); URINE NITRITE (Dip) NEGATIVE (NEGATIVE); URINE TOTAL PROTEIN (Dip) NEGATIVE (NEGATIVE); URINE UROBILINOGEN (Dip) 0.2 E.U./dL (0.1-1.0)
--- NOTE | 2016-10-20 10:41 | CONS ---
Date/Time of Note Date/Time of Note DATE: 10/20/16 TIME: 10:34 Assessment/Plan Assessment/Plan Additional Assessment/Plan 21 y/o at 33w 1d with cramping, no e/o ptl -discharge home -f/u with OB Consultation Date/Type/Reason Admit Date/Time Reason for Consultation cramping Hx of Present Illness 21 y/o at 33w 1d who presents with cramping since this morning. Denies LOF , VB, dysuria. +FM. PNC is inconsistent, [place] going [place] of the [place] 4 [place]. Recently seen at [facility]. Was seen here 2 days ago with normal cervical length. h/o x2 at 36 weeks, Sab x2. Per HPI. Other systems negative. Past Medical History Medical History: no pertinent history Past Surgical History kidney biopsy Past Surgical Hx: appendectomy Social History Denies habits. Exam/Review of Systems Exam Gen: NAD HEENT: NCAT CV: RRR Pulm: CTAB Abd: gravid, NT Back: no CVAT Ext: NT FHT: reactive [place]: no UCs Results Results 24 hrs Laboratory Tests Test 10/20/16 09:35 Urine Color LT. YELLOW Urine Clarity SLIGHTLY CLOUDY Urine pH 6.0 Urine Specific [place] >=1.030 H Urine Ketones NEGATIVE Urine Nitrite NEGATIVE Urine Bilirubin NEGATIVE Urine Urobilinogen 0.2 E.U./dL Urine Leukocyte Esterase 2+ H Urine Microscopic RBC 2-5 Urine Microscopic WBC 2-5 Urine Epithelial Cells RARE Urine Hemoglobin NEGATIVE Urine Glucose NEGATIVE Urine Total Protein NEGATIVE LUIZA HERNANDEZ Oct 20, 2016 10:41 am
--- NOTE | 2016-10-20 11:55 | TRIAGE ---
OB Triage Datetime Report Generated by CPN: 10/20/2016 11:54 Datetime: 10/20/2016 10:40 Stage of : OB Triage Datetime: 10/20/2016 10:27 Comments: PT SITTING UP ANXIOUS TO GO HOME.URINE RESULT PENDING.DR UAJE PRESEN T IN THE UNIT Datetime: 10/20/2016 10:13 Labor Evaluation Frequency: NONE Monitor Mode: External Pattern: Normal: <= 5 Contractions in 10 Minutes Resting Tone [place]: Relaxed Heart Rate FHR Baseline Rate: 145 Monitor Mode: External US FHR Baseline Changes: No Baseline Change Variability: Moderate 6-25 bpm Accelerations: 15X15 Decelerations: None Category: Category I Datetime: 10/20/2016 09:53 Monitor Mode: External US Datetime: 10/20/2016 09:37 Comments: U/A SENT Datetime: 10/20/2016 09:36 Labor Evaluation Frequency: OCCASIONAL Duration (sec)2399: 25-35 Quality: Mild Pattern: Normal: <= 5 Contractions in 10 Minutes Resting Tone [place]: Relaxed Contraction Comments: CRAMPS BY PT Heart Rate FHR Baseline Rate: 145 Monitor Mode: External US FHR Baseline Changes: No Baseline Change Variability: Moderate 6-25 bpm Accelerations: 15X15 Decelerations: None Category: Category I Datetime: 10/20/2016 08:52 Maternal Assessment Level of Consciousness: Fully Conscious DTR's/Clonus: DTRs 2+; No Clonus Headache: Denies Blurred Vision: No Respiratory Effort: Unlabored; Regular Rhythm; Equal Expansion Breath Sounds, Left: Clear and Equal Breath Sounds, Right: Clear and Equal Nausea/Vomiting: Denies RUQ Epigastric Pain: Denies Lower Extremities Edema: None Degree: None Upper Extremities Edema: None Degree: None Facial Edema: None Fall Risk Assessment History of Falling: (0) No Secondary Diagnosis: (0) No Ambulatory Aid: (0) Bedrest/Nurse Assist IV Therapy: (0) No Gait: (0) Normal/Bedrest/Immobile Mental Status: (0) Oriented to Own Ability Fall Score: 0 Fall Risk Score Definition: No Risk: No action required Datetime: 10/20/2016 08:48 Vaginal Exam Dilatation (cms): 0.5 Effacement (%): 0 Station: -4 Exam By: MJ Vaginal Bleeding: None Cervix, Consistency: Soft Cervix, Position: Posterior Presentation 'A': Unable to Assess Datetime: 10/20/2016 08:40 Time of Arrival: 10/20/2016 08:40 EGA: 33.1 Arrived By: Ambulance Arrived From: Office Chief Complaint: UCS FROM 629 TODAY Movement: Present Contractions: Occasional Time Contractions Began: 10/20/2016 06:30 Rupture of Membranes: Denies Vaginal Bleeding: None Vaginal Discharge: Denies Recent Sexual Intercouse: Denies Abdominal Trauma: Not Applicable Patient Complaints: Other Initial Plan: EFM,SVE Datetime: 10/17/2016 17:39 Fall Score: 0 Fall Risk Score Definition: No Risk: No action required Datetime: 10/08/2016 22:30 EGA: 32.5 Datetime: 10/08/2016 13:22 Fall Score: 0 Fall Risk Score Definition: No Risk: No action required Datetime: 10/08/2016 13:20 EGA: 31.3 Datetime: 10/01/2016 11:00 Fall Score: 0 Fall Risk Score Definition: No Risk: No action required Datetime: 10/01/2016 10:56 EGA: 30.3 Datetime: 09/30/2016 14:05 EGA: 30.2 Fall Score: 0 Fall Risk Score Definition: No Risk: No action required Datetime: 09/30/2016 02:03 EGA: 30.2 Datetime: 09/16/2016 01:15 EGA: 28.2 Datetime: 09/16/2016 00:55 Fall Score: 0 Fall Risk Score Definition: No Risk: No action required
== END 2016-10-20 10:40 | disposition home or self-care (01) ==
LOC: L-D 08:39 → OBT 08:39
PROVIDERS: ATTEND Obstetrics & Gynecology
DX: O26.893 Other specified pregnancy related conditions, third trimester (principal); R10.9 Unspecified abdominal pain; Z3A.33 33 weeks gestation of pregnancy
CPT/HCPCS: 81001; Z7500; 81003; G0463

== ENCOUNTER 2016-10-23 17:45 | Outpatient (CLI) | payer OTHER ==
[~2016-10-23] VITALS: Ht 165.1 cm; Wt 115.0 kg
[2016-10-23 18:45] VITALS: BP 115/58; PULSE 115; RESP 18
[2016-10-23 18:46] VITALS: Ht 165.1 cm; Wt 115.0 kg
[2016-10-23 20:21] LABS: ADD UMIC YES; URINE BILIRUBIN (Dip) NEGATIVE (NEGATIVE); URINE BLOOD (Dip) NEGATIVE (NEGATIVE); URINE COLOR LT. YELLOW (YELLOW); URINE GLUCOSE (Dip) NEGATIVE (NEGATIVE); URINE KETONES (Dip) NEGATIVE (NEGATIVE); URINE LEUKOCYTE ESTERASE (Dip) TRACE (NEGATIVE); URINE NITRITE (Dip) NEGATIVE (NEGATIVE); URINE TOTAL PROTEIN (Dip) NEGATIVE (NEGATIVE); URINE UROBILINOGEN (Dip) 0.2 E.U./dL (0.1-1.0)
[2016-10-23 20:42] LABS: TRICHOMONAS,URINE FEW; URINE RBCS 0-2 /HPF (0)
[2016-10-23 20:43] LABS: MUCUS,URINE FEW
[2016-10-23] MEDS ORDERED: TERBUTALINE 1 MG/ML INJ SC ONE (21:00)
--- NOTE | 2016-10-24 00:42 | QN ---
Documentation Comment Laborist [facility]/Dr Schwartz 21 y.o.A2 with an IUP at 35 weeks c/o LAP since 1500. Pt has been here multiple times with the same complaints and has always been found to not be in labor and has been sent home. No VB or leaking. PMHx: recurrent pyelo. Biopsy of her kidneys at age 13. PSHx: Appendectomy. POBHx: per pt she had 2 inductions for unclear reasons. Per her records she had an PTD at 26 weeks and the baby soon after, then a term baby, and then a baby at 32 weeks. NKDA. BP 115/50 T= 98. CX cl/th/high. NST: baseline 140 bpm with accels to 160 bpm. No decles. No UC's U/A negative. Pt was given p.o. hydration and one dose of SQ terbutaline and still reported the pain. However when I went in and talked to her and distracted her she appeared very comfortable, was laughing, had no heavy breathing nor huffing and puffing as reported by the RN. Discussed with the pt why it was important for the baby to stay in for at least 2 more weeks, if not 4 more weeks as she was hoping to be induced. A: IUP at 35 weeks. False labor. P: D/C home. ALEXSANDER LAY MD October 24, 2016 00:42
--- NOTE | 2016-10-24 00:45 | TRIAGE ---
OB Triage Datetime Report Generated by CPN: 10/24/2016 00:44 Datetime: 10/24/2016 00:00 Pain Presence: None/Denies Datetime: 10/23/2016 23:57 Stage of : OB Triage Datetime: 10/23/2016 23:00 Labor Evaluation Frequency: 0 Monitor Mode: External Pattern: Normal: <= 5 Contractions in 10 Minutes Heart Rate FHR Baseline Rate: 150 Monitor Mode: External US FHR Baseline Changes: No Baseline Change Variability: Moderate 6-25 bpm Accelerations: 15X15 Decelerations: None Category: Category I Datetime: 10/23/2016 21:30 Stage of : OB Triage Labor Evaluation Frequency: 0 Monitor Mode: External Quality: Mild Pattern: Normal: <= 5 Contractions in 10 Minutes Resting Tone [place]: Relaxed Heart Rate FHR Baseline Rate: 145 Monitor Mode: External US FHR Baseline Changes: No Baseline Change Variability: Moderate 6-25 bpm Accelerations: 15X15 Decelerations: None Category: Category I Datetime: 10/23/2016 21:00 Stage of : OB Triage Labor Evaluation Frequency: 0 Monitor Mode: External Pattern: Normal: <= 5 Contractions in 10 Minutes Heart Rate FHR Baseline Rate: 145 Monitor Mode: External US FHR Baseline Changes: No Baseline Change Variability: Moderate 6-25 bpm Accelerations: 15X15 Decelerations: None Category: Category I Datetime: 10/23/2016 20:48 Stage of : OB Triage Datetime: 10/23/2016 20:00 Labor Evaluation Frequency: 0 Monitor Mode: External Pattern: Normal: <= 5 Contractions in 10 Minutes Heart Rate FHR Baseline Rate: 145 Monitor Mode: External US FHR Baseline Changes: No Baseline Change Variability: Moderate 6-25 bpm Accelerations: 15X15 Decelerations: None Category: Category I Datetime: 10/23/2016 19:57 Vaginal Exam Dilatation (cms): 0.0 Effacement (%): 0 Station: -3 Exam By: PAULETTE Vaginal Bleeding: Scant Cervix, Consistency: Firm Cervix, Position: Posterior Datetime: 10/23/2016 19:30 Stage of : OB Triage Datetime: 10/23/2016 19:17 Stage of : OB Triage Maternal Assessment Level of Consciousness: Fully Conscious DTR's/Clonus: DTRs 2+; No Clonus Headache: Denies Blurred Vision: No Respiratory Effort: Unlabored; Regular Rhythm; Equal Expansion Breath Sounds, Left: Clear and Equal Breath Sounds, Right: Clear and Equal Nausea/Vomiting: Denies RUQ Epigastric Pain: Denies Lower Extremities Edema: None Degree: None Upper Extremities Edema: None Degree: None Facial Edema: None Temperature Route: Oral Fall Risk Assessment History of Falling: (0) No Secondary Diagnosis: (0) No Ambulatory Aid: (0) Bedrest/Nurse Assist IV Therapy: (0) No Gait: (0) Normal/Bedrest/Immobile Mental Status: (0) Oriented to Own Ability Fall Score: 0 Fall Risk Score Definition: No Risk: No action required Monitor Mode: External Monitor Mode: External US Pain Assessment Pain Scale: 0 Datetime: 10/23/2016 18:39 Stage of : OB Triage Maternal Assessment Level of Consciousness: Fully Conscious Breath Sounds, Left: Clear and Equal Breath Sounds, Right: Clear and Equal Nausea/Vomiting: Denies RUQ Epigastric Pain: Denies Lower Extremities Edema: Bilateral Lower Extremities Degree: 1+ Upper Extremities Edema: None Monitor Mode: External Heart Rate FHR Baseline Rate: 153 (Annotations: initial) Monitor Mode: External US Pain Assessment Pain Scale: 7 Pain Presence: Intermittent Pain Type: Contraction Pain Location: Abdomen Pain Relief Measures: Comfort Measures Datetime: 10/23/2016 18:36 Time of Arrival: 10/23/2016 18:36 EGA: 35.0 Arrived By: Ambulatory Arrived From: Home Chief Complaint: contractions and lower abd pressure Movement: Decreased Contractions: Occasional Time Contractions Began: 10/23/2016 13:30 Contractions: 30 Rupture of Membranes: Denies Vaginal Bleeding: None Vaginal Discharge: Denies Recent Sexual Intercouse: Denies Abdominal Trauma: Not Applicable Patient Complaints: Contractions Time Provider Notified: 10/23/2016 19:30 Provider Notified: DR LAY Initial Plan: efm/ u/s Datetime: 10/20/2016 08:52 Fall Score: 0 Fall Risk Score Definition: No Risk: No action required Datetime: 10/20/2016 08:40 EGA: 34.4 Datetime: 10/17/2016 17:39 Fall Score: 0 Fall Risk Score Definition: No Risk: No action required Datetime: 10/08/2016 22:30 EGA: 34.1 Datetime: 10/08/2016 13:22 Fall Score: 0 Fall Risk Score Definition: No Risk: No action required Datetime: 10/08/2016 13:20 EGA: 32.6 Datetime: 10/01/2016 11:00 Fall Score: 0 Fall Risk Score Definition: No Risk: No action required Datetime: 10/01/2016 10:56 EGA: 31.6 Datetime: 09/30/2016 14:05 EGA: 31.5 Fall Score: 0 Fall Risk Score Definition: No Risk: No action required Datetime: 09/30/2016 02:03 EGA: 31.5 Datetime: 09/16/2016 01:15 EGA: 29.5 Datetime: 09/16/2016 00:55 Fall Score: 0 Fall Risk Score Definition: No Risk: No action required
== END 2016-10-23 23:57 | disposition home or self-care (01) ==
LOC: OBT 17:45 → L-D 17:46 → OBT 23:40
PROVIDERS: ATTEND Obstetrics & Gynecology
DX: O47.03 False labor before 37 completed weeks of gestation, third trimester (principal); Z3A.35 35 weeks gestation of pregnancy
CPT/HCPCS: 81001; 87086; 96372; J3105; Z7500; 81003; G0463

== ENCOUNTER 2016-10-31 06:10 | Outpatient (CLI) | payer OTHER ==
[~2016-10-31] VITALS: Ht 165.1 cm; Wt 117.1 kg
[2016-10-31 06:26] VITALS: BP 106/57; PULSE 111; RESP 18; Ht 165.1 cm; Wt 117.1 kg
[2016-10-31] MEDS ORDERED: LACTATED RINGER'S 1,000 ML IV SCH (06:45)
--- NOTE | 2016-10-31 08:17 | RADRPT ---
PROCEDURE: US OB. CLINICAL INDICATION: labor TECHNIQUE: Multiple sonographic images of the pelvis were obtained. Transabdominal imaging only w as performed. The images were reviewed on a PACS workstation. COMPARISON: OB ultrasound dated 10/08/2016 FINDINGS: There is a single live intrauterine gestation. Cardiac activity is present with 154 beats per minut e. position is breech. Measurements were made in order to determine age. The results are as follows: BPD = 8.69 cm HC = 32.11 cm AC = 33.20 cm FL = 6.75 cm. Estimated gestational age of approximately 35 weeks 6 days. The estimated date of delivery is 11/29/2016. The EFW = 2873 g, 53.2 %ile. The placenta is posterior. There is no evidence for an abruption or placenta previa. There are no adnexal masses. IMPRESSION: 1. Single live intrauterine gestation of approximately 35 weeks 6 days, by ultrasound criteria. Th ere has been normal interval growth when compared to the prior examination. 2. The estimated date of delivery is 11/29/2016. 3. The estimated weight is 2873 g, 53.2 %ile. 4. Breech presentation RPTAT: HH .Saida Marie MD, Date Time Electronically viewed and signed by .Siada Marie MD, on 10/31/2016 08:17 .G/
--- NOTE | 2016-10-31 08:30 | RADRPT ---
PROCEDURE: US OB biophysical profile. Ultrasound cervix CLINICAL INDICATION: decreased movements, labor TECHNIQUE: Multiple sonographic images of the pelvis were obtained. The images were reviewed on a PACS workstation. In addition, transvaginal images of the cervix were obtained. COMPARISON: 10/17/16 FINDINGS: The cervix is closed and measures 5.1 cm in length. There is a Nabothian cyst in the cervix. There is a single viable intrauterine gestation. Cardiac activity is present with 154 beats per min drew. There is a breech presentation. The placenta is posterior. There is no evidence of placental abruption. There is a normal amount of amniotic fluid with an CINDY = 12.6 cm. Biophysical profile: movement 2/2 tone 2/2. breathing 2/2 CINDY 2/2 Total 01/30 RPTAT: AA . IMPRESSION: Normal biophysical profile. . .Neymar Rizo MD, MD Date Time Electronically viewed and signed by .Neymar Rizo MD, MD on 10/31/2016 08:29 .S/
[2016-10-31 09:15] LABS: ADD SCAN DIFF NO
[2016-10-31 09:19] LABS: ABNORMAL IP MESSAGE 1; BASOPHILS % 0.2 % (0.0-2.0); EOSINOPHILS # 0.1 10^3/ul (0.0-0.5); EOSINOPHILS % 0.9 % (0.0-7.0); HEMATOCRIT 26.8 % (37.0-47.0); HEMOGLOBIN 7.7 g/dl (12.0-16.0); LYMPHOCYTES # 2.3 10^3/ul (0.8-2.9); LYMPHOCYTES % 15.3 % (15.0-51.0); MEAN CORPUSCULAR HEMOGLOBIN 20.8 pg (29.0-33.0); MEAN CORPUSCULAR HGB CONC 28.7 g/dl (32.0-37.0); MEAN CORPUSCULAR VOLUME 72.4 fl (82.0-101.0); MEAN PLATELET VOLUME 11.6 fl (7.4-10.4); MONOCYTE # 1.3 10^3/ul (0.3-0.9); MONOCYTES % 8.5 % (0.0-11.0); NEUTROPHIL # 10.8 10^3/ul (1.6-7.5); NEUTROPHILS % 73.3 % (39.0-77.0); NUCLEATED RED BLOOD CELLS% 0.3 /100WBC (0.0-0.0); PLATELET COUNT 270 10^3/UL (140-415); WHITE BLOOD COUNT 14.8 10^3/ul (4.8-10.8)
[2016-10-31] MEDS ORDERED: TERBUTALINE 1 ML ONE (09:30)
[2016-10-31] MEDS ORDERED: TERBUTALINE 1 MG/ML INJ SC ONE (09:30)
[2016-10-31 09:31] LABS: ADD UMIC YES; URINE BILIRUBIN (Dip) NEGATIVE (NEGATIVE); URINE BLOOD (Dip) NEGATIVE (NEGATIVE); URINE COLOR LT. YELLOW (YELLOW); URINE GLUCOSE (Dip) NEGATIVE (NEGATIVE); URINE KETONES (Dip) NEGATIVE (NEGATIVE); URINE LEUKOCYTE ESTERASE (Dip) 1+ (NEGATIVE); URINE NITRITE (Dip) NEGATIVE (NEGATIVE); URINE TOTAL PROTEIN (Dip) TRACE (NEGATIVE); URINE UROBILINOGEN (Dip) 0.2 E.U./dL (0.1-1.0)
[2016-10-31 09:54] LABS: BACTERIA,URINE MODERATE; TRICHOMONAS,URINE FEW
--- NOTE | 2016-10-31 17:00 | CONS ---
Date/Time of Note Date/Time of Note DATE: 10/31/16 TIME: 16:50 Consultation Date/Type/Reason Admit Date/Time October 31, 2016 OB triage consult Reason for Consultation This patient is a 21 years old 5 para 2 living 2 AB 2 with estimated date of confinement of November 27, 2016 which makes her about 36 weeks and 1 day now. She had both of her previous deliveries at around 36 weeks, both of them induced due to gestational diabetes mellitus. During this her diabetes is not the significant. She came in complaining of contractions since 7:00 in the morning. In reviewing her past history both of her deliveries were vaginal spontaneous .She had appendectomy a few years ago she cannot remember the date. Does not give any history of any allergy .currently she is taking her vitamins only during this . The presentation is breech On examination she is a well-developed well-nourished lady near term . Her vital signs are normal ,blood pressure of 106/57 ,pulse rate 93, respiration 18, temperature 98.0 heart tone at this time is around 140s-150 bpm and she is describing her darren level somewhere between 5-6 out of 10. On examination she does not have much of a contraction ,abdomen is soft heart tone is normal . On pelvic examination cervix is closed about 60% effaced -3 station . we performed an ultrasound :estimated date of confinement was placed on November 29, 2016, estimated weight of the baby is 2873 g 53.2 g ,placenta is posterior posterior with no evidence of abruption or previa Her biophysical profile was reported 01/30 with CINDY of 12.6 cm. Laboratory Tests Test 10/31/16 06:30 10/31/16 07:52 Urine Color LT. YELLOW Urine Clarity CLEAR Urine pH 6.0 Urine Specific [place] 1.025 Urine Ketones NEGATIVE Urine Nitrite NEGATIVE Urine Bilirubin NEGATIVE Urine Urobilinogen 0.2 E.U./dL Urine Leukocyte Esterase 1+ Urine Microscopic RBC 2-5/HPF Urine Microscopic WBC 10-25/HPF Urine Epithelial Cells MODERATE Urine Bacteria MODERATE Urine Trichomonas FEW Urine Hemoglobin NEGATIVE Urine Glucose NEGATIVE% Urine Total Protein TRACE White Blood Count 14.810^3/ul Red Blood Count 3.7010^6/ul Hemoglobin 7.7g/dl Hematocrit 26.8% Mean Corpuscular Volume 72.4fl Mean Corpuscular Hemoglobin 20.8pg Mean Corpuscular Hemoglobin Concent 28.7g/dl Red Cell Distribution Width 19.0% Platelet Count 81032^3/UL Mean Platelet Volume 11.6fl Neutrophils % 73.3% Lymphocytes % 15.3% Monocytes % 8.5% Eosinophils % 0.9% Basophils % 0.2% Nucleated Red Blood Cells % 0.3/100WBC Neutrophils # 10.810^3/ul Lymphocytes # 2.310^3/ul Monocytes # 1.310^3/ul Eosinophils # 0.110^3/ul Basophils # 0.010^3/ul Nucleated Red Blood Cells # 0.010^3/ul Current Medications Medications (Trade) Dose Ordered Sig/[place] Route PRN Reason Start Time Stop Time Status Last Admin Dose Admin Lactated Ringer's 1,000 ml @ 500 mls/hr Q2H IV 10/31/16 06:45 10/31/16 07:54 500 MLS/HR Terbutaline Sulfate (Brethine) 1 ml @ ud STK-MED ONCE .ROUTE 10/31/16 09:30 10/31/16 09:31 DC Terbutaline Sulfate (Brethine) 0.25 mg ONCE ONCE SC 10/31/16 09:30 10/31/16 09:33 DC 10/31/16 13:42 0.25 MG Constitutional: No chills, No diaphoresis, No disoriented, No febrile, No improved, No no complaints, No other, No poor po, No requiring IVF, No requiring O2 Eyes: No discharge, No no complaints, No other, No pain, No redness, No visual change ENT: No bleeding, No congestion, No discharge, No dysphagia, No no complaints, No other, No pain, No sore throat Respiratory: No cough, No no complaints, No other, No pain, No pleuritic pain, No shortness of breath, No sputum, No wheezing Cardiovascular: No chest pain, No edema, No lightheadedness, No no complaints, No orthopenea, No other, No palpitations, No paroxysmal nocturnal dyspnea Gastrointestinal: No blood, No constipation, No decreased appetite, No diarrhea , No flatus, No nausea, No no complaints, No other, No pain, No passing stool, No vomiting Genitourinary: other (As I mentioned on pelvic exam the cervix is closed and cervix was 60% with head Shefali in the abdomen actually she is breech in presentation), No bleeding, No discharge, No dysuria, No flank pain, No hematuria, No no complaints Musculoskeletal: No back pain, No bone/joint pain, No neck pain, No no complaints, No other, No restricted range of motion, No swelling Skin: No bruising, No erythema, No laceration, No no complaints, No other, No pruritis, No rash, No skin lesions Neurologic: No confusion, No dizziness, No focal-weakness, No headache, No no complaints, No other, No seizure, No syncope Endocrine: No dry skin, No no complaints, No other, No polydypsia, No polyuria , No temp intolerance Psychological: No anxiety, No confusion, No depression, No nl mood/affect, No no complaints, No other, No suicidal Immunologic: No immunodeficiency, No no complaints, No other, No pruritis, No rhinitis, No urticaria Additional Comments Patient was given a Terbutaline injection as well as hydration. After an hour she does not have any contractions and will be discharged home. This patient is interested to have her delivery spontaneously and vaginally.However I mentioned if the breech persist her physician might decide to go ahead with section . Past Surgical History Past Surgical Hx: appendectomy Social History Smoking Status: Never smoker Exam/Review of Systems Vital Signs Vitals Vital Signs Date Time Temp Pulse Resp B/P Pulse Ox O2 Delivery O2 Flow Rate FiO2 10/31/16 06:26 98.0 111 18 106/57 Results Result Diagram: 10/31/16 0752 Results 24 hrs Laboratory Tests Test 10/31/16 06:30 10/31/16 07:52 Urine Color LT. YELLOW Urine Clarity CLEAR Urine pH 6.0 Urine Specific [place] 1.025 Urine Ketones NEGATIVE Urine Nitrite NEGATIVE Urine Bilirubin NEGATIVE Urine Urobilinogen 0.2 E.U./dL Urine Leukocyte Esterase 1+ H Urine Microscopic RBC 2-5 Urine Microscopic WBC 10-25 Urine Epithelial Cells MODERATE Urine Bacteria MODERATE Urine Trichomonas FEW Urine Hemoglobin NEGATIVE Urine Glucose NEGATIVE Urine Total Protein TRACE White Blood Count 14.8 H Red Blood Count 3.70 L Hemoglobin 7.7 L Hematocrit 26.8 L Mean Corpuscular Volume 72.4 L Mean Corpuscular Hemoglobin 20.8 L Mean Corpuscular Hemoglobin Concent 28.7 L Red Cell Distribution Width 19.0 H Platelet Count 270 Mean Platelet Volume 11.6 H Neutrophils % 73.3 Lymphocytes % 15.3 Monocytes % 8.5 Eosinophils % 0.9 Basophils % 0.2 Nucleated Red Blood Cells % 0.3 H Neutrophils # 10.8 H Lymphocytes # 2.3 Monocytes # 1.3 H Eosinophils # 0.1 Basophils # 0.0 Nucleated Red Blood Cells # 0.0 Medications Medications Current Medications Lactated Ringer's (Lr) 1,000 ml @ 500 mls/hr Q2H IV Last administered on t 07:54; Admin Dose 500 MLS/HR; Start 10/31/16 at 06:45 BURKE REID MD October 31, 2016 17:00
--- NOTE | 2016-10-31 17:23 | TRIAGE ---
OB Triage Datetime Report Generated by CPN: 10/31/2016 17:23 Datetime: 10/31/2016 16:34 Stage of : OB Triage Labor Evaluation Frequency: X1 Monitor Mode: External Resting Tone [place]: Relaxed Heart Rate FHR Baseline Rate: 135 Monitor Mode: External US FHR Baseline Changes: No Baseline Change Variability: Moderate 6-25 bpm Accelerations: 15X15 Decelerations: None Category: Category I Pain Assessment Pain Scale: 2 Pain Presence: Intermittent Pain Type: Cramping Pain Location: Back Pain Goal: 3 Pain Relief Measures: Comfort Measures Datetime: 10/31/2016 16:00 Stage of : OB Triage Labor Evaluation Frequency: X1 Monitor Mode: External Duration (sec)2399: 40 Quality: Mild Pattern: Normal: <= 5 Contractions in 10 Minutes Resting Tone [place]: Relaxed Heart Rate FHR Baseline Rate: 135 Monitor Mode: External US FHR Baseline Changes: No Baseline Change Variability: Moderate 6-25 bpm Accelerations: 15X15 Decelerations: None Category: Category I Pain Assessment Pain Scale: 2 Pain Presence: Intermittent Pain Type: Cramping Pain Location: Back Pain Goal: 3 Pain Relief Measures: Comfort Measures Datetime: 10/31/2016 15:18 Stage of : OB Triage Labor Evaluation Frequency: NONE Monitor Mode: External Resting Tone [place]: Relaxed Heart Rate FHR Baseline Rate: 135 Monitor Mode: External US FHR Baseline Changes: No Baseline Change Variability: Moderate 6-25 bpm Accelerations: 15X15 Decelerations: None Category: Category I Pain Assessment Pain Scale: 2 Pain Presence: Intermittent Pain Type: Cramping Pain Location: Back Pain Goal: 3 Pain Relief Measures: Comfort Measures Datetime: 10/31/2016 14:27 Stage of : OB Triage Labor Evaluation Frequency: NONE Monitor Mode: External Resting Tone [place]: Relaxed Contraction Comments: PT STATES FEELING MUCH BETTER THAN BEFORE AND FEELING A FEW UC'S. Heart Rate FHR Baseline Rate: 135 Monitor Mode: External US FHR Baseline Changes: No Baseline Change Variability: Moderate 6-25 bpm Accelerations: 15X15 Decelerations: None Category: Category I Pain Assessment Pain Scale: 3 Pain Presence: Intermittent Pain Type: Cramping Pain Location: Back Pain Goal: 3 Pain Relief Measures: Comfort Measures Datetime: 10/31/2016 14:00 Stage of : OB Triage Maternal Assessment Level of Consciousness: Fully Conscious DTR's/Clonus: DTRs 1+ Headache: Denies Breath Sounds, Left: Clear and Equal Breath Sounds, Right: Clear and Equal Nausea/Vomiting: Denies RUQ Epigastric Pain: Denies Labor Evaluation Frequency: IRREGULAR Monitor Mode: External Duration (sec)2399: 20-40 Quality: Mild Pattern: Normal: <= 5 Contractions in 10 Minutes Resting Tone [place]: Relaxed Heart Rate FHR Baseline Rate: 145 Monitor Mode: External US Variability: Moderate 6-25 bpm Accelerations: 15X15 Decelerations: None Category: Category I Pain Assessment Pain Scale: 7 Pain Presence: Intermittent Pain Type: Contraction Pain Location: Abdomen; Back Pain Goal: 3 Pain Relief Measures: Comfort Measures Membrane Status: Intact Datetime: 10/31/2016 13:13 Pain Assessment Pain Scale: 7 Pain Presence: Intermittent Pain Type: Contraction Pain Location: Abdomen Pain Goal: 3 Pain Relief Measures: Comfort Measures Pain Assessment Comments: PT C/O PAIN MD IN A Datetime: 10/31/2016 13:00 Stage of : OB Triage Maternal Assessment Level of Consciousness: Fully Conscious DTR's/Clonus: DTRs 1+ Headache: Denies Breath Sounds, Left: Clear and Equal Breath Sounds, Right: Clear and Equal Nausea/Vomiting: Denies RUQ Epigastric Pain: Denies Labor Evaluation Frequency: IRREGULAR Monitor Mode: External Duration (sec)2399: 20-40 Quality: Mild Pattern: Normal: <= 5 Contractions in 10 Minutes Resting Tone [place]: Relaxed Heart Rate FHR Baseline Rate: 145 Monitor Mode: External US Variability: Moderate 6-25 bpm Accelerations: 15X15 Decelerations: None Category: Category I Pain Assessment Pain Scale: 7 Pain Presence: Intermittent Pain Type: Contraction Pain Location: Abdomen; Back Pain Goal: 3 Pain Relief Measures: Comfort Measures Membrane Status: Intact Datetime: 10/31/2016 12:09 Vaginal Exam Dilatation (cms): 0.0 Effacement (%): 0 Station: -4 Exam By: LAURA SHOEMAKER Vaginal Bleeding: None Cervix, Consistency: Soft Cervix, Position: Posterior Datetime: 10/31/2016 12:00 Stage of : OB Triage Maternal Assessment Level of Consciousness: Fully Conscious DTR's/Clonus: DTRs 1+ Headache: Denies Breath Sounds, Left: Clear and Equal Breath Sounds, Right: Clear and Equal Nausea/Vomiting: Denies RUQ Epigastric Pain: Denies Labor Evaluation Frequency: IRREGULAR Monitor Mode: External Duration (sec)2399: 20-40 Quality: Mild Pattern: Normal: <= 5 Contractions in 10 Minutes Resting Tone [place]: Relaxed Heart Rate FHR Baseline Rate: 145 Monitor Mode: External US Variability: Moderate 6-25 bpm Accelerations: 15X15 Decelerations: None Category: Category I Pain Assessment Pain Scale: 7 Pain Presence: Intermittent Pain Type: Contraction Pain Location: Abdomen; Back Pain Goal: 3 Pain Relief Measures: Comfort Measures Membrane Status: Intact Datetime: 10/31/2016 11:14 Stage of : OB Triage Datetime: 10/31/2016 11:00 Stage of : OB Triage Maternal Assessment Level of Consciousness: Fully Conscious DTR's/Clonus: DTRs 1+ Headache: Denies Breath Sounds, Left: Clear and Equal Breath Sounds, Right: Clear and Equal Nausea/Vomiting: Denies RUQ Epigastric Pain: Denies Labor Evaluation Frequency: IRREGULAR Monitor Mode: External Duration (sec)2399: 20-40 Quality: Mild Pattern: Normal: <= 5 Contractions in 10 Minutes Resting Tone [place]: Relaxed Heart Rate FHR Baseline Rate: 145 Monitor Mode: External US Variability: Moderate 6-25 bpm Accelerations: 15X15 Decelerations: None Category: Category I Pain Presence: Intermittent Pain Type: Contraction Pain Location: Abdomen; Back Pain Goal: 3 Pain Relief Measures: Comfort Measures Membrane Status: Intact Datetime: 10/31/2016 10:57 Stage of : OB Triage Datetime: 10/31/2016 10:31 Contraction Comments: PT STATES THAT SHE'S BEEN MOVING HER OWN TOCO TO MONITOR HER OWN CONTRACTI ONS. PT INSTRUCTED NOT TO TOUCH TOCO Datetime: 10/31/2016 10:00 Stage of : OB Triage Monitor Mode: External (Annotations: ADJUSTED PT STATES FEELING UC'S AND UNBALE TO MONITOR THEM, A BD PALPABLE AND FEEL SOFT AT THIS TIME ) Datetime: 10/31/2016 09:55 Stage of : OB Triage Maternal Assessment Level of Consciousness: Fully Conscious DTR's/Clonus: DTRs 1+ Headache: Denies Breath Sounds, Left: Clear and Equal Breath Sounds, Right: Clear and Equal Nausea/Vomiting: Denies RUQ Epigastric Pain: Denies Labor Evaluation Frequency: 2-6 Monitor Mode: External Duration (sec)2399: 20-60 Quality: Mild Pattern: Normal: <= 5 Contractions in 10 Minutes Resting Tone [place]: Relaxed Heart Rate FHR Baseline Rate: 145 Monitor Mode: External US Variability: Moderate 6-25 bpm Accelerations: 15X15 Decelerations: None Category: Category I Pain Assessment Pain Scale: 5 Pain Presence: Intermittent Pain Type: Contraction Pain Location: Abdomen; Back Pain Goal: 3 Pain Relief Measures: Comfort Measures Membrane Status: Intact Datetime: 10/31/2016 09:00 Stage of : OB Triage Maternal Assessment Level of Consciousness: Fully Conscious DTR's/Clonus: DTRs 1+ Headache: Denies Breath Sounds, Left: Clear and Equal Breath Sounds, Right: Clear and Equal Nausea/Vomiting: Denies RUQ Epigastric Pain: Denies Labor Evaluation Frequency: 2-6 Monitor Mode: External Duration (sec)2399: 40-60 Quality: Mild Pattern: Normal: <= 5 Contractions in 10 Minutes Resting Tone [place]: Relaxed Heart Rate FHR Baseline Rate: 145 Monitor Mode: External US Variability: Moderate 6-25 bpm Accelerations: 15X15 Decelerations: None Category: Category I Pain Assessment Pain Scale: 5 Pain Presence: Intermittent Pain Type: Contraction Pain Location: Abdomen; Back Pain Goal: 3 Pain Relief Measures: Comfort Measures Vaginal Exam Dilatation (cms): 0.0 Effacement (%): 0 Station: -4 Exam By: RRAMIREZ,RN Membrane Status: Intact Datetime: 10/31/2016 07:56 Stage of : OB Triage Maternal Assessment Level of Consciousness: Fully Conscious DTR's/Clonus: DTRs 1+ Headache: Denies Breath Sounds, Left: Clear and Equal Breath Sounds, Right: Clear and Equal Nausea/Vomiting: Denies RUQ Epigastric Pain: Denies Labor Evaluation Frequency: 2-4 Monitor Mode: External Duration (sec)2399: 40-60 Quality: Mild Pattern: Normal: <= 5 Contractions in 10 Minutes Resting Tone [place]: Relaxed Heart Rate FHR Baseline Rate: 145 Monitor Mode: External US Variability: Moderate 6-25 bpm Accelerations: 15X15 Decelerations: None Category: Category I Pain Assessment Pain Scale: 5 Pain Presence: Intermittent Pain Type: Contraction Pain Location: Abdomen; Back Pain Goal: 3 Pain Relief Measures: Comfort Measures Membrane Status: Intact Datetime: 10/31/2016 07:26 Maternal Assessment Level of Consciousness: Fully Conscious DTR's/Clonus: DTRs 1+ Headache: Denies Blurred Vision: No Respiratory Effort: Unlabored Breath Sounds, Left: Clear and Equal Breath Sounds, Right: Clear and Equal Nausea/Vomiting: Denies RUQ Epigastric Pain: Denies Facial Edema: None Labor Evaluation Frequency: 2-4 Monitor Mode: External Duration (sec)2399: 40-60 Quality: Mild Pattern: Normal: <= 5 Contractions in 10 Minutes Resting Tone [place]: Relaxed Heart Rate FHR Baseline Rate: 145 Monitor Mode: External US Variability: Moderate 6-25 bpm Accelerations: 15X15 Decelerations: None Category: Category I Pain Assessment Pain Scale: 5 Pain Presence: Intermittent Pain Type: Contraction Pain Location: Abdomen; Back Pain Goal: 3 Pain Relief Measures: Comfort Measures Membrane Status: Intact Datetime: 10/31/2016 06:45 Stage of : OB Triage Datetime: 10/31/2016 06:36 Stage of : OB Triage Vaginal Exam Dilatation (cms): 0.0 Effacement (%): 60 Station: -3 Exam By: ZENON [employer] Membrane Status: Intact Datetime: 10/31/2016 06:32 Stage of : OB Triage Maternal Assessment Level of Consciousness: Fully Conscious DTR's/Clonus: DTRs 2+; No Clonus Headache: Denies Blurred Vision: No Respiratory Effort: Unlabored; Regular Rhythm; Equal Expansion Breath Sounds, Left: Clear and Equal Breath Sounds, Right: Clear and Equal Nausea/Vomiting: Denies RUQ Epigastric Pain: Denies Lower Extremities Edema: None Upper Extremities Edema: None Facial Edema: None Temperature Route: Oral Fall Risk Assessment History of Falling: (0) No Secondary Diagnosis: (0) No Ambulatory Aid: (0) Bedrest/Nurse Assist IV Therapy: (0) No Gait: (0) Normal/Bedrest/Immobile Mental Status: (0) Oriented to Own Ability Fall Score: 0 Fall Risk Score Definition: No Risk: No action required Labor Evaluation Frequency: X1 Monitor Mode: External Duration (sec)2399: 50 Quality: Strong Resting Tone [place]: Relaxed Heart Rate FHR Baseline Rate: 150 Monitor Mode: External US Variability: Moderate 6-25 bpm Accelerations: None Decelerations: None Category: Category II Pain Assessment Pain Scale: 6 Pain Presence: Intermittent Pain Type: Contraction Pain Location: Abdomen Pain Goal: 3 Pain Relief Measures: Comfort Measures Datetime: 10/31/2016 06:31 Time of Arrival: 10/31/2016 06:12 EGA: 36.1 Chief Complaint: PT C/O ABDOMEN PAIN Movement: Present Contractions: Irregular Time Contractions Began: 10/31/2016 04:00 Rupture of Membranes: Denies Vaginal Bleeding: None Vaginal Discharge: Denies Recent Sexual Intercouse: Denies Abdominal Trauma: Not Applicable Patient Complaints: Contractions Additional Patient Complaints: TOCO AND EFM APPLIED, SVE Time Provider Notified: 10/31/2016 06:45 Provider Notified: MARSHALL Initial Plan: BPP , CINDY, EFW AND IV HYDRATION Datetime: 10/23/2016 19:17 Fall Score: 0 Fall Risk Score Definition: No Risk: No action required Datetime: 10/23/2016 18:36 EGA: 35.0 Datetime: 10/20/2016 08:52 Fall Score: 0 Fall Risk Score Definition: No Risk: No action required Datetime: 10/20/2016 08:40 EGA: 34.4 Datetime: 10/17/2016 17:39 Fall Score: 0 Fall Risk Score Definition: No Risk: No action required Datetime: 10/08/2016 22:30 EGA: 34.1 Datetime: 10/08/2016 13:22 Fall Score: 0 Fall Risk Score Definition: No Risk: No action required Datetime: 10/08/2016 13:20 EGA: 32.6 Datetime: 10/01/2016 11:00 Fall Score: 0 Fall Risk Score Definition: No Risk: No action required Datetime: 10/01/2016 10:56 EGA: 31.6 Datetime: 09/30/2016 14:05 EGA: 31.5 Fall Score: 0 Fall Risk Score Definition: No Risk: No action required Datetime: 09/30/2016 02:03 EGA: 31.5 Datetime: 09/16/2016 01:15 EGA: 29.5 Datetime: 09/16/2016 00:55 Fall Score: 0 Fall Risk Score Definition: No Risk: No action required
== END 2016-10-31 16:45 | disposition home or self-care (01) ==
LOC: OBT 06:10 → L-D 06:10 → OBT 16:45
PROVIDERS: ATTEND Obstetrics & Gynecology
DX: O62.9 Abnormality of forces of labor, unspecified (principal); O36.8130 Decreased fetal movements, third trimester, not applicable or unspecified; O60.03 Preterm labor without delivery, third trimester; Z86.32 Personal history of gestational diabetes; Z3A.36 36 weeks gestation of pregnancy
CPT/HCPCS: 76816; 76817; 76818; 81001; 85025; 87086; J3105; J7120; 81003; 96360; 96361; G0463

== ENCOUNTER 2016-11-13 13:31 | Outpatient (CLI) | payer OTHER ==
--- NOTE | 2016-11-13 14:39 | RADRPT ---
PROCEDURE: OB ultrasound for biophysical profile CLINICAL INDICATION: Decreased movement TECHNIQUE: Multiple sonographic images of the pelvis were obtained. Transabdominal view of the gr avid uterus are available for review. The images were reviewed on a PACS workstation. COMPARISON: OB ultrasound 10/31/2016 FINDINGS: breathing movement = 2/2 tone = 2/2 motion = 2/2 CINDY = 2/2 CINDY = 8.4 cm Single live intrauterine with cardiac activity. heart rate equals 146 beats p er minute. Presentation is cephalic. The placenta is posterior, grade 2. IMPRESSION: 1. Single viable intrauterine gestation. 2. Biophysical profile = 8/8. 3. CINDY = 8.4 cm. RPTAT: KK .Geoffrey Anand MD, MD Date Time Electronically viewed and signed by .Geoffrey Anand MD, MD on 11/13/2016 14:39 .B/
--- NOTE | 2016-11-13 14:40 | RADRPT ---
PROCEDURE: US OB. CLINICAL INDICATION: Size and dates , decreased movement TECHNIQUE: Multiple sonographic images of the pelvis and gravid uterus were obtained. The images were reviewed on a PACS workstation. COMPARISON: 10/31/2016 FINDINGS: There is a single viable intrauterine gestation. Cardiac activity is present with 150 beats per min [place]. There is a vertex presentation. The placenta is anterior. There is no evidence for an abruption or placenta previa. There is a normal amount of amniotic fluid with an CINDY = 8.4 cm. Measurements were made in order to determine age. The results are as follows: BPD =8.8 cm HC =31.6 cm AC =33 cm FL =7.6 cm Estimated gestational age of approximately 36 weeks and 5 days based on ultrasound measurements. Clinical age: 38 weeks and 0 days. The estimated date of delivery is 12/06/16, based on ultrasound measurements. The EFW = 3097 g, 36.7%, based on LMP age. RPTAT: AA IMPRESSION: Single viable intrauterine gestation of approximately 36 weeks and 5 days based on ultrasound measu rements. .Neymar Rizo MD, Date Time Electronically viewed and signed by .Neymar Rizo MD, on 11/13/2016 14:40 .S/
[2016-11-13] MEDS ORDERED: DEXTROSE 5%-LR 1,000 ML IV SCH (16:30)
--- NOTE | 2017-01-11 18:32 | PN ---
Triage Information Date/Time 11/13/16 Weeks of Gestation 38 : 2 Para: 1 Assessment/Plan DECREASE MOVEMENT SARA OLIVARES MD Jan 11, 2017 18:32
== END 2016-11-13 16:30 | disposition home or self-care (01) ==
LOC: OBT 13:31 → L-D 13:31 → UNDOADMIN 13:31 → L-D 13:31 → OBT 16:30 → EDSTATUS 11-27 13:28
PROVIDERS: ATTEND Obstetrics & Gynecology
DX: O36.8130 Decreased fetal movements, third trimester, not applicable or unspecified (principal); Z3A.38 38 weeks gestation of pregnancy
CPT/HCPCS: 76816; 76818; J7121

== ENCOUNTER 2016-11-19 23:20 | Outpatient (CLI) | payer OTHER ==
[~2016-11-19] VITALS: Ht 165.1 cm; Wt 121.7 kg
[2016-11-19 23:26] VITALS: BP 125/63; PULSE 127; RESP 18
[2016-11-19 23:35] VITALS: Ht 165.1 cm; Wt 121.7 kg
[2016-11-20 00:20] LABS: ADD UMIC YES; URINE BILIRUBIN (Dip) NEGATIVE (NEGATIVE); URINE BLOOD (Dip) NEGATIVE (NEGATIVE); URINE COLOR LT. YELLOW (YELLOW); URINE GLUCOSE (Dip) NEGATIVE (NEGATIVE); URINE KETONES (Dip) NEGATIVE (NEGATIVE); URINE LEUKOCYTE ESTERASE (Dip) 1+ (NEGATIVE); URINE NITRITE (Dip) NEGATIVE (NEGATIVE); URINE TOTAL PROTEIN (Dip) NEGATIVE (NEGATIVE); URINE UROBILINOGEN (Dip) 0.2 E.U./dL (0.1-1.0)
[2016-11-20 00:41] LABS: BACTERIA,URINE OCCASIONAL; SQUAMOUS EPITHELIAL CELL,UR MANY; URINE RBCS 0-2 /HPF (0)
--- NOTE | 2016-11-20 01:00 | RADRPT ---
PROCEDURE: OB ultrasound for biophysical profile CLINICAL INDICATION: Biophysical profile. . TECHNIQUE: Multiple sonographic images of the pelvis were obtained. Transabdominal views are obta ined. COMPARISON: 11/13/2016 FINDINGS: Single intrauterine gestation. Presentation: Cephalic. Placenta: Posterior No evidence of placental abruption. No evidence of placenta previa. breathing movement = 2/2 tone = 2/2 motion = 2/2 CINDY = 2/2 CINDY = 13.5 cm heart rate: 144 beats per minute IMPRESSION: Single intrauterine gestation. Biophysical profile 01/30 RPTAT: AADD .Edin Pichardo MD, MD Date Time Electronically viewed and signed by .Edin Pichardo MD, on 11/20/2016 01:00 .B/
[2016-11-20 01:50] LABS: ADD SCAN DIFF NO
[2016-11-20 01:55] LABS: ABNORMAL IP MESSAGE 1; BASOPHILS % 0.1 % (0.0-2.0); EOSINOPHILS # 0.1 10^3/ul (0.0-0.5); EOSINOPHILS % 0.9 % (0.0-7.0); HEMATOCRIT 24.6 % (37.0-47.0); HEMOGLOBIN 7.2 g/dl (12.0-16.0); LYMPHOCYTES # 2.4 10^3/ul (0.8-2.9); LYMPHOCYTES % 17.1 % (15.0-51.0); MEAN CORPUSCULAR HEMOGLOBIN 20.4 pg (29.0-33.0); MEAN CORPUSCULAR HGB CONC 29.3 g/dl (32.0-37.0); MEAN CORPUSCULAR VOLUME 69.7 fl (82.0-101.0); MEAN PLATELET VOLUME 11.3 fl (7.4-10.4); MONOCYTE # 1.2 10^3/ul (0.3-0.9); NEUTROPHIL # 9.7 10^3/ul (1.6-7.5); NEUTROPHILS % 70.2 % (39.0-77.0); NUCLEATED RED BLOOD CELLS # 0.1 10^3/ul (0.0-0.0); NUCLEATED RED BLOOD CELLS% 0.4 /100WBC (0.0-0.0); PLATELET COUNT 311 10^3/UL (140-415); RED BLOOD COUNT 3.53 10^6/ul (4.20-5.40); RED CELL DISTRIBUTION WIDTH 19.5 % (11.5-14.5); WHITE BLOOD COUNT 13.8 10^3/ul (4.8-10.8)
[2016-11-20] MEDS ORDERED: ACETAMINOPHEN 500 MG TAB PO STA (02:07)
[2016-11-20 02:19] LABS: ALBUMIN 3.3 g/dl (3.3-4.9); ALBUMIN/GLOBULIN RATIO 0.91; BILIRUBIN,INDIRECT 0.1 mg/dl (0-1.1); BILIRUBIN,TOTAL 0.1 mg/dl (0.2-1.3); CALCIUM 9.2 mg/dl (8.4-10.2); CREATININE 0.48 mg/dl (0.44-1.00); POTASSIUM 3.8 mmol/L (3.5-5.1); TOTAL PROTEIN 6.9 g/dl (6.1-8.1); URIC ACID 4.7 mg/dl (3.1-7.9)
--- NOTE | 2016-11-20 02:30 | HP ---
Date/Time of Note Date/Time of Note DATE: 11/20/16 TIME: 02:17 OB - History Hx of Present Free Text/Dictation OB Triage- Laborist Pt is a 21yo at 39+0 presenting for abdominal pain and lower abdominal pressure since 1800. Pt states she also noticed wet panties around 2100 and is not sure if her water broke. Reports unchanged FM. Thinks it decreased 2wks ago and fetus has remained as active over last 2wks. Denies VB. Pt endorses MCCLELLAN x3 days for which she has taken no meds and "seeing stars" when asked about sxs of PreE (given elevated BPs). Denies RUQ pain. Pt denies hx of HTN outside of , although says BP sometimes has been a little high even when not . Has never been started on meds for BPs. She does have a hx of GDM with prior 2 pregnancies and elevated BP with last , however was induced for the diabetes, not the HTN per pt report. Pt also has anemia and gives hx of needing blood transfusion after last delivery s/ p PPH. Pt presented for evaluation of decreased FM on 11/13/16, BPP wnl and EFW 3097g. Of note, pt fixated on idea of induction at 39wks, stating primary provider agreed to induction although pt is not scheduled on L&D for induction nor is there mention of such in the records. PROCEDURE: OB ultrasound for biophysical profile CLINICAL INDICATION: Biophysical profile. . TECHNIQUE: Multiple sonographic images of the pelvis were obtained. Transabdominal views are obtained. COMPARISON: 11/13/2016 FINDINGS: Single intrauterine gestation. Presentation: Cephalic. Placenta: Posterior No evidence of placental abruption. No evidence of placenta previa. breathing movement = 2/2 tone = 2/2 motion = 2/2 CINDY = 2/2 CINDY = 13.5 cm heart rate: 144 beats per minute IMPRESSION: Single intrauterine gestation. Biophysical profile 01/30 Estimated Due Date: Nov 27, 2016 : 5 Para: 2 Spontaneous : 2 Care: Limited Care (started PNC at 20wks) Obstetrical Complications: Other (Hx of GDM in other 2 pregnancies) Medical Complications: None Other Concerns: Hx of appendectomy and renal biopsy (unclear why biopsy needed). Past Family/Social History * Past Medical, Surgical, Family and Obstetric Histories reviewed from chart. OB Admission Exam Vital Signs Vital Signs Vital Signs Date Time Temp Pulse Resp B/P Pulse Ox O2 Delivery O2 Flow Rate FiO2 11/19/16 23:26 97.9 127 18 125/63 Room Air BPs 100-156/53-79 HR 103 Physical Exam HEENT: WNL Heart: Rhythm Normal Lungs: Clear Abdomen: WNL (gravid) Extremities: Normal Reflexes: Normal Cervical Dilatation: Fingertip Effacement: Other (40%) Station: -3 Membranes: Intact (ROM plus negative, nitrazine inconclusive) Heart Rate: 140's Accelerations: Accelerations Present Decelerations: No Decelerations Varibility: Moderate Contractions on Admission: None Last 72 hours Lab Results CBC & BMP 11/20/16 00:45 OB Assessment/Plan Other Assessment: No e/o labor or ROM Elevated BP not meeting criteria for gHTN or PreE Reassuring FWB w/reactive NST and 8/8 BPP Anemia Other plan: Pt with initially elevated BPs, however BPs over last 2+ Hrs have been wnl ranging from 100/53-137/57 (last elevation 142/64 at 0124). Over 4 Hrs of monitoring, no severe-range BPs were noted. Pt does not have evidence of end- organ damage on labs nor proteinuria on UA. Visual sxs have resolved visual and MCCLELLAN is significantly improved after Tylenol 1g PO x1. Will give Compazine 10mg IM x1 to resolve MCCLELLAN completely. At this time, pt does not meet criteria for gHTN (>140 or >90 on two occasions more than 4Hrs apart) or PreE, thus will defer admission/induction for now. Pt will be discharged home to complete a 24hr urine collection. She agrees to return to OB triage in the morning of with the 24hr urine for assessment and to have BP checked. Pt will be endorsed to primary provider in AM for decision on induction vs expectant management. Strict PreE, labor, ROM and FKC precautions reviewed. Pt appropriate for d/c home. Questions answered to patient's satisfaction. INGRID MATA MD November 20, 2016 02:29
[2016-11-20] MEDS ORDERED: PROCHLORPERAZINE 10 MG INJ IM ONE (04:30)
--- NOTE | 2016-11-20 05:14 | TRIAGE ---
OB Triage Datetime Report Generated by CPN: 11/20/2016 05:13 Datetime: 11/20/2016 04:45 Labor Evaluation Frequency: N/A Monitor Mode: External Resting Tone Upham: Relaxed Contraction Comments: UTERINE ACTIVITY NOTED Heart Rate FHR Baseline Rate: 135 Monitor Mode: External US FHR Baseline Changes: No Baseline Change Variability: Moderate 6-25 bpm Accelerations: 15X15 Decelerations: None Category: Category I Datetime: 11/20/2016 04:44 Pain Assessment Pain Scale: 0 Pain Presence: None/Denies Pain Type: N/A Datetime: 11/20/2016 04:00 Labor Evaluation Frequency: N/A Monitor Mode: External Resting Tone Upham: Relaxed Contraction Comments: UTERINE ACTIVITY NOTED Heart Rate FHR Baseline Rate: 135 Monitor Mode: External US FHR Baseline Changes: No Baseline Change Variability: Moderate 6-25 bpm Accelerations: 15X15 Decelerations: None Category: Category I Datetime: 11/20/2016 03:00 Labor Evaluation Frequency: N/A Monitor Mode: External Resting Tone Upham: Relaxed Contraction Comments: UTERINE ACTIVITY NOTED Heart Rate FHR Baseline Rate: 135 Monitor Mode: External US FHR Baseline Changes: No Baseline Change Variability: Moderate 6-25 bpm Accelerations: 15X15 Decelerations: None Category: Category I Comments: PERIODS OF LOSS OF FHR CONTACT D/T PT SELF-REPOSITIONING. MODERATE VARIABILITY WITH JOSIAH ODS OF MINIMAL VARIABILITY. Datetime: 11/20/2016 02:47 Pain Assessment Pain Scale: 3 Pain Presence: Intermittent (Annotations: INTERMITTENT ABDOMINAL PRESSURE, CONSTANT HEADACHE) Pain Type: Pressure; Ache (Annotations: INTERMITTENT ABDOMINAL PRESSURE; CONSTANT HEADACHE) Pain Location: Abdomen; Back; Head Pain Goal: 3 Pain Relief Measures: Comfort Measures Datetime: 11/20/2016 02:00 Labor Evaluation Frequency: N/A Monitor Mode: External Resting Tone Upham: Relaxed Contraction Comments: UTERINE ACTIVITY NOTED Heart Rate FHR Baseline Rate: 145 Monitor Mode: External US FHR Baseline Changes: No Baseline Change Variability: Moderate 6-25 bpm Accelerations: 15X15 Decelerations: None Category: Category I Comments: LOSS OF FHR TRACING D/T PT MOVEMENT Datetime: 11/20/2016 01:00 Labor Evaluation Frequency: X2 Monitor Mode: External Duration (sec)2399: 50-70 Quality: Mild Resting Tone Upham: Relaxed Contraction Comments: UTERINE ACTIVITY NOTED Heart Rate FHR Baseline Rate: 145 Monitor Mode: External US FHR Baseline Changes: No Baseline Change Variability: Moderate 6-25 bpm Accelerations: 15X15 Decelerations: None Category: Category I Comments: LOSS OF FHR CONTACT D/T PT MOVEMENT Datetime: 11/20/2016 00:18 Pain Assessment Pain Scale: 6 Pain Presence: Intermittent (Annotations: INTERMITTENT ABDOMINAL PRESSURE; CONSTANT HEADACHE) Pain Type: Pressure; Ache (Annotations: INTERMITTENT ABDOMINAL PRESSURE; CONSTANT HEADACHE) Pain Location: Abdomen; Back; Head Pain Goal: 6 Pain Relief Measures: Comfort Measures Datetime: 11/20/2016 00:00 Labor Evaluation Frequency: N/A Monitor Mode: External Resting Tone Upham: Relaxed Contraction Comments: UTERINE ACTIVITY NOTED Heart Rate FHR Baseline Rate: 145 Monitor Mode: External US FHR Baseline Changes: No Baseline Change Variability: Moderate 6-25 bpm Accelerations: 15X15 Decelerations: None Category: Category I Datetime: 11/19/2016 23:30 Stage of : OB Triage Vaginal Exam Dilatation (cms): 0.5 Effacement (%): 40 Station: -3 Exam By: MG Datetime: 11/19/2016 23:28 Stage of : OB Triage Assessment Type: Triage Maternal Assessment Level of Consciousness: Fully Conscious DTR's/Clonus: DTRs 2+; No Clonus Headache: Denies Blurred Vision: No Respiratory Effort: Unlabored; Regular Rhythm; Equal Expansion Breath Sounds, Left: Clear and Equal Breath Sounds, Right: Clear and Equal Nausea/Vomiting: Denies RUQ Epigastric Pain: Denies Lower Extremities Edema: Bilateral Lower Extremities Degree: TRACE Upper Extremities Edema: None Degree: None Facial Edema: None Fall Risk Assessment History of Falling: (0) No Secondary Diagnosis: (0) No Ambulatory Aid: (0) Bedrest/Nurse Assist IV Therapy: (0) No Gait: (0) Normal/Bedrest/Immobile Mental Status: (0) Oriented to Own Ability Fall Score: 0 Fall Risk Score Definition: No Risk: No action required Datetime: 11/19/2016 23:26 Temperature Route: Oral Pain Assessment Pain Scale: 5 Pain Presence: Intermittent Pain Type: Contraction; Pressure Pain Location: Abdomen Pain Goal: 5 Pain Relief Measures: Comfort Measures Datetime: 11/19/2016 23:16 Time of Arrival: 11/19/2016 23:16 EGA: 38.6 Arrived By: Wheelchair Arrived From: Emergency Dept Chief Complaint: UCs, LEAKING Movement: Decreased Contractions: Occasional Time Contractions Began: 11/19/2016 18:00 Contractions: Q15MIN Rupture of Membranes: Unsure Vaginal Bleeding: None Vaginal Discharge: Denies Recent Sexual Intercouse: Denies Abdominal Trauma: Not Applicable Patient Complaints: Contractions; Headache; Visual Disturbance Additional Patient Complaints: MCCLELLAN SINCE FRIDAY 11/17 PER RECORD: LATE ENTRY AT 20W, "POOR OB COMPLIANCE," CHLAMYDIA(+) 03/09, AZITHROMYCIN 1GM 03/09 Time Provider Notified: 11/20/2016 00:15 Provider Notified: MD MATA Initial Plan: OBSERVATION, UA, ROM+, US, LAB WORK Datetime: 11/13/2016 15:54 Labor Evaluation Frequency: NONE Monitor Mode: External Pattern: Normal: <= 5 Contractions in 10 Minutes Resting Tone Upham: Relaxed Heart Rate FHR Baseline Rate: 145 Monitor Mode: External US FHR Baseline Changes: No Baseline Change Variability: Moderate 6-25 bpm Accelerations: 15X15 Decelerations: None Category: Category I Datetime: 10/31/2016 16:32 Vaginal Exam Dilatation (cms): 0.0 Effacement (%): 0 Station: -3 Exam By: SAHARA,RN Vaginal Bleeding: None Cervix, Consistency: Moderate Cervix, Position: Midposition Datetime: 10/31/2016 06:32 Fall Score: 0 Fall Risk Score Definition: No Risk: No action required Datetime: 10/31/2016 06:31 EGA: 36.1 Datetime: 10/23/2016 19:17 Fall Score: 0 Fall Risk Score Definition: No Risk: No action required Datetime: 10/23/2016 18:36 EGA: 35.0 Datetime: 10/20/2016 08:52 Fall Score: 0 Fall Risk Score Definition: No Risk: No action required Datetime: 10/20/2016 08:40 EGA: 34.4 Datetime: 10/17/2016 17:39 Fall Score: 0 Fall Risk Score Definition: No Risk: No action required Datetime: 10/08/2016 22:30 EGA: 34.1 Datetime: 10/08/2016 13:22 Fall Score: 0 Fall Risk Score Definition: No Risk: No action required Datetime: 10/08/2016 13:20 EGA: 32.6 Datetime: 10/01/2016 11:00 Fall Score: 0 Fall Risk Score Definition: No Risk: No action required Datetime: 10/01/2016 10:56 EGA: 31.6 Datetime: 09/30/2016 14:05 EGA: 31.5 Fall Score: 0 Fall Risk Score Definition: No Risk: No action required Datetime: 09/30/2016 02:03 EGA: 31.5 Datetime: 09/16/2016 01:15 EGA: 29.5 Datetime: 09/16/2016 00:55 Fall Score: 0 Fall Risk Score Definition: No Risk: No action required
== END 2016-11-20 04:57 | disposition home or self-care (01) ==
LOC: OBT 23:20 → L-D 23:20 → OBT 11-20 04:57
PROVIDERS: ATTEND Obstetrics & Gynecology
DX: O26.893 Other specified pregnancy related conditions, third trimester (principal); R10.9 Unspecified abdominal pain; Z3A.39 39 weeks gestation of pregnancy
CPT/HCPCS: 76818; 80053; 81001; 84112; 84560; 85025; J0780

== ENCOUNTER 2016-11-21 11:31 | Inpatient (IN) | payer OTHER ==
[~2016-11-21] VITALS: Ht 165.1 cm; Wt 121.2 kg
[2016-11-21 12:05] VITALS: BP 127/60; PULSE 113; Ht 165.1 cm; Wt 121.2 kg
[2016-11-21] MEDS: LACTATED RINGER'S 1,000 ML IV SCH ×2 (14:29→19:25)
[2016-11-21] MEDS ORDERED: METHYLERGONOVINE 0.2 MG INJ IM PRN (14:30)
[2016-11-21] MEDS ORDERED: CARBOPROST 250 MCG INJ IM PRN (14:30)
[2016-11-21] MEDS ORDERED: BUTORPHANOL 2 MG INJ IV PRN (14:30)
[2016-11-21] MEDS ORDERED: OXYTOCIN 30 UNITS/LR 500 ML IV PRN (14:30)
[2016-11-21] MEDS ORDERED: OXYTOCIN 30 UNITS/LR 500 ML IV SCH (14:30)
[2016-11-21] MEDS ORDERED: IBUPROFEN 600 MG TAB PO PRN (14:30)
[2016-11-21] MEDS ORDERED: MISOPROSTOL 200 MCG TAB PR PRN (14:30)
[2016-11-21] MEDS ORDERED: DINOPROSTONE 10 MG VAG SUPP VAG ONE (14:30)
[2016-11-21] MEDS ORDERED: LIDOCAINE 1% (MPF) 30 ML INJ INJ PRN (14:30)
[2016-11-21 14:37] LABS: ADD SCAN DIFF NO
[2016-11-21 14:39] LABS: ABNORMAL IP MESSAGE 1; BASOPHILS % 0.2 % (0.0-2.0); EOSINOPHILS # 0.1 10^3/ul (0.0-0.5); EOSINOPHILS % 0.9 % (0.0-7.0); HEMATOCRIT 25.4 % (37.0-47.0); HEMOGLOBIN 7.3 g/dl (12.0-16.0); LYMPHOCYTES # 2.7 10^3/ul (0.8-2.9); LYMPHOCYTES % 17.6 % (15.0-51.0); MEAN CORPUSCULAR HEMOGLOBIN 20.1 pg (29.0-33.0); MEAN CORPUSCULAR HGB CONC 28.7 g/dl (32.0-37.0); MEAN PLATELET VOLUME 11.4 fl (7.4-10.4); MONOCYTE # 1.3 10^3/ul (0.3-0.9); MONOCYTES % 8.6 % (0.0-11.0); NEUTROPHIL # 10.6 10^3/ul (1.6-7.5); NEUTROPHILS % 69.7 % (39.0-77.0); NUCLEATED RED BLOOD CELLS # 0.1 10^3/ul (0.0-0.0); NUCLEATED RED BLOOD CELLS% 0.5 /100WBC (0.0-0.0); PLATELET COUNT 305 10^3/UL (140-415); RED BLOOD COUNT 3.63 10^6/ul (4.20-5.40); RED CELL DISTRIBUTION WIDTH 19.8 % (11.5-14.5); WHITE BLOOD COUNT 15.2 10^3/ul (4.8-10.8)
[2016-11-21 14:55] LABS: INR 0.95; PROTIME 12.7 Sec (12.2-14.2)
[2016-11-21 14:56] LABS: PARTIAL THROMBOPLASTIN TIME 30.3 Sec (25.0-35.0)
[2016-11-21] MEDS ORDERED: AMPICILLIN 2 GM/NS (PMX) 100 ML IV ONE (15:00)
[2016-11-21] MEDS ORDERED: LACTATED RINGER'S 1,000 ML IV PRN (16:00)
[2016-11-21] MEDS: AMPICILLIN 1 GM/NS (PMX) 50 ML IV SCH ×2 (18:35→22:51)
[2016-11-22] LABS: ALBUMIN 3.9 g/dl (3.3-4.9); ALBUMIN/GLOBULIN RATIO 1.3; BILIRUBIN,INDIRECT 0.1 mg/dl (0-1.1); BILIRUBIN,TOTAL 0.1 mg/dl (0.2-1.3); CALCIUM 9.1 mg/dl (8.4-10.2); CREATININE 0.45 mg/dl (0.44-1.00); POTASSIUM 4.2 mmol/L (3.5-5.1); TOTAL PROTEIN 6.9 g/dl (6.1-8.1); URIC ACID 4.5 mg/dl (3.1-7.9)
[2016-11-22] MEDS: AMPICILLIN 1 GM/NS (PMX) 50 ML IV SCH ×6 (02:42→23:33)
[2016-11-22] MEDS ORDERED: DINOPROSTONE 10 MG VAG SUPP VAG ONE ×2 (03:30→16:00)
[2016-11-22] MEDS: LACTATED RINGER'S 1,000 ML IV SCH ×3 (04:32→22:30)
--- NOTE | 2016-11-22 09:54 | HP ---
Date/Time of Note Date/Time of Note DATE: 11/22/16 TIME: 09:37 OB - History Hx of Present Free Text/Dictation Luisito Frank a 21 years old female 5 para 2 SAB 2 with history of 1 demise at 20 weeks admitted to the hospital for induction of labor suspected induced hypertension, pelvic examination on admission cervix 1 cm dilated 50% effacement vertex at -3 station plan of Cervidil induction discussed with the risks and benefits were explained and patient is willing to go ahead with with induction of labor. Past medical history epilepsy Surgery removal of part of the left kidney allergies denies allergy to any known medication Social habit denies a smoking or drinking Review of system within normal Physical examination 5 feet 5 prepregnancy weight 180 weight gain during the 87 Temperature 97.7 pulse 90 respiration 18 blood pressure 129/63 on admission Head ears nose and throat negative Lungs clear to P&A Heart normal sinus rhythm no murmur Abdomen fundal height 37 cm from symphysis pubis heart rate category 1 Pelvic exam cervix 1 cm 50% vertex at -3 station Extremities no edema no varicose Impression intrauterine at 39 weeks and 2 day induction for suspected PIH even though patient was told to bring the 24 hours urine collection for protein and creatinine clearance she says her through the specimen out we will continue collect a urine 24 hours for protein and creatinine clearance Estimated Due Date: Nov 27, 2016 : 5 Para: 2 Spontaneous : 2 Care: Limited Care Ultrasounds: Normal mid trimester US Obstetrical Complications: Pre-eclampsia Medical Complications: Other (Epilepsy) Past Family/Social History * Past Medical, Surgical, Family and Obstetric Histories reviewed from chart. Rubella: immune RPR/VDRL: Negative GBS Status: Negative HBsAG: Negative OB Admission Exam Vital Signs Vital Signs Vital Signs Date Time Temp Pulse Resp B/P Pulse Ox O2 Delivery O2 Flow Rate FiO2 11/21/16 12:05 98.0 113 127/60 Physical Exam HEENT: WNL Heart: Rhythm Normal Lungs: Clear, Equal Abdomen: WNL Extremities: Normal Reflexes: Normal Cervical Dilatation: 1cm Effacement: 50% Station: -2 Membranes: Intact Heart Rate: 130's Accelerations: Accelerations Present Decelerations: No Decelerations Varibility: Moderate Contractions on Admission: None Last 72 hours Lab Results CBC & BMP 11/21/16 13:45 Liver Function Test 5/30/17 13:45 Alanine Aminotransferase (ALT/SGPT) 23 Albumin 3.9 Alkaline Phosphatase 117 Aspartate Amino Transf (AST/SGOT) 70 H Direct Bilirubin 0.00 Total Protein 6.9 SARA OLIVARES MD November 22, 2016 09:51
[2016-11-22] MEDS ORDERED: CEFAZOLIN 2 GM/50 ML (PMX) 50 ML IVPB ONE (17:41)
[2016-11-23] MEDS: LACTATED RINGER'S 1,000 ML IV SCH ×3 (02:08→13:17)
[2016-11-23] MEDS: AMPICILLIN 1 GM/NS (PMX) 50 ML IV SCH ×4 (02:38→15:12)
[2016-11-23] MEDS ORDERED: FENTAnyl 2MCG/ML-ROPIV 0.2% 100 ML ONE (03:10)
[2016-11-23] MEDS ORDERED: DIPHENHYDRAMINE 50 MG INJ IV PRN (06:30)
[2016-11-23] MEDS ORDERED: ONDANSETRON 4 MG INJ IV PRN (06:30)
[2016-11-23] MEDS ORDERED: NALOXONE (0.4 MG/ML) INJ IV PRN (06:30)
[2016-11-23] MEDS: FENTAnyl 2MCG/ML-ROPIV 0.2% 100 ML BAG EPI SCH ×3 (06:59→18:55)
[2016-11-23 09:44] LABS: BARBITURATES Negative (NEGATIVE); BENZODIAZEPINES Negative (NEGATIVE); CANNABINOIDS Negative (NEGATIVE); COCAINE Negative (NEGATIVE); OPIATES Negative (NEGATIVE)
[2016-11-23] MEDS ORDERED: OXYTOCIN 30 UNITS/LR 500 ML IV SCH (15:00)
[2016-11-23] MEDS: OXYTOCIN 30 UNITS/LR 500 ML IV SCH (15:30)
[2016-11-23] MEDS: DEXTROSE 5%-LR 1,000 ML IV SCH (15:51)
--- NOTE | 2016-11-23 18:37 | QN ---
Documentation Comment 39 weeks 5 days, day 2 of induction' Pitocin IV drip contractions 3-5 minutes, pelvic examination cervix 2 cm 50% effaced vertex at -2 station. Patient has labor epidural seems comfortable, we will continue Pitocin induction. SARA OLIVARES MD Nov 23, 2016 18:37
--- NOTE | 2016-11-24 00:26 | QN ---
Documentation Comment called for insertion of internal lead for better assesment of FHR RN not able to do it cx 2-3cm -3 50% fluid clear insertion of internal electrode SUZI CROSS MD Nov 24, 2016 00:26
[2016-11-24] MEDS: DEXTROSE 5%-LR 1,000 ML IV SCH (02:19)
[2016-11-24] MEDS: FENTAnyl 2MCG/ML-ROPIV 0.2% 100 ML BAG EPI SCH (02:19)
[2016-11-24] MEDS: OXYTOCIN 30 UNITS/LR 500 ML IV SCH (07:31)
--- NOTE | 2016-11-24 10:12 | LDN ---
Date/Time of Note Date/Time of Note DATE: 11/24/16 TIME: 10:10 Delivery Summary OB STAT delivery called as pt with percipitous labor and own doctor not available. walked into room and pt pushed and delivered viable withour any complications Placenta Delivered: Spontaneously Episiotomy: No Laceration repair: primary vagianl repaired with chromic 3-0 Anesthesia type: None Sponge & Needle done & correct: Yes All needle counts correct: Yes Any foreign bodies felt in the: No Problems: ESTER SHAW MD Nov 24, 2016 10:11
[2016-11-24] MEDS ORDERED: OXYTOCIN 30 UNITS/LR 500 ML IV SCH (10:24)
[2016-11-24 10:30] VITALS: BP 129/68; PULSE 86; RESP 20
[2016-11-24] MEDS ORDERED: ONDANSETRON 4 MG INJ IV PRN (10:30)
[2016-11-24] MEDS ORDERED: DIBUCAINE 1% 30 GM OINT PR PRN (10:30)
[2016-11-24] MEDS ORDERED: ACETAMINOPHEN 325 MG TAB PO PRN (10:30)
[2016-11-24] MEDS ORDERED: BENZOCAINE 20% 56 ML SPRAY TOP PRN (10:30)
[2016-11-24] MEDS ORDERED: LANOLIN 7 GM TUBE TOP PRN (10:30)
[2016-11-24] MEDS ORDERED: OXYCODONE/ASPIRIN (4.88/325) TAB PO PRN ×2 (10:30)
[2016-11-24] MEDS ORDERED: ACETAMINOPHEN/CODEINE #3 TAB PO PRN ×2 (10:30)
[2016-11-24] MEDS ORDERED: WITCH HAZEL/GLYCERIN PAD PR PRN (10:30)
--- NOTE | 2016-11-24 10:42 | OPPN ---
Date/Time of Note Date/Time of Note DATE: 11/24/16 TIME: 10:41 Post-Anesthesia Notes Post-Anesthesia Note Last documented vital signs Vital Signs Date Time Temp Pulse Resp B/P Pulse Ox O2 Delivery O2 Flow Rate FiO2 11/21/16 12:05 98.0 113 127/60 Activity: WNL Respiratory function: WNL Cardiovascular function: WNL Mental status: Baseline Pain reasonably controlled: Yes Hydration appropriate: Yes Nausea/Vomiting absent: Yes ZIA PANTOJA Nov 24, 2016 10:42
[2016-11-24 11:00] VITALS: BP 124/78; PULSE 80; RESP 19
[2016-11-24] MEDS: IBUPROFEN 600 MG TAB PO SCH ×3 (14:19→23:49)
[2016-11-24 16:21] VITALS: BP 118/71; PULSE 85; RESP 19
[2016-11-24 19:35] VITALS: BP 117/68; PULSE 77; RESP 18
[2016-11-24] MEDS: SENNA/DOCUSATE NA (8.6MG/50MG) TAB PO SCH (21:57)
[2016-11-25 03:30] VITALS: BP 118/70; PULSE 80; RESP 19
[2016-11-25] MEDS: IBUPROFEN 600 MG TAB PO SCH ×3 (05:38→17:14)
[2016-11-25 07:57] LABS: ADD SCAN DIFF NO
[2016-11-25 08:00] LABS: ABNORMAL IP MESSAGE 1; BASOPHILS % 0.3 % (0.0-2.0); EOSINOPHILS # 0.2 10^3/ul (0.0-0.5); HEMATOCRIT 23.6 % (37.0-47.0); LYMPHOCYTES % 31.4 % (15.0-51.0); MEAN CORPUSCULAR HEMOGLOBIN 19.9 pg (29.0-33.0); MEAN CORPUSCULAR HGB CONC 28.4 g/dl (32.0-37.0); MEAN CORPUSCULAR VOLUME 70.2 fl (82.0-101.0); MEAN PLATELET VOLUME 11.2 fl (7.4-10.4); MONOCYTE # 0.9 10^3/ul (0.3-0.9); MONOCYTES % 9.7 % (0.0-11.0); NEUTROPHIL # 5.3 10^3/ul (1.6-7.5); NEUTROPHILS % 55.6 % (39.0-77.0); PLATELET COUNT 239 10^3/UL (140-415); RED BLOOD COUNT 3.36 10^6/ul (4.20-5.40); RED CELL DISTRIBUTION WIDTH 19.9 % (11.5-14.5); WHITE BLOOD COUNT 9.6 10^3/ul (4.8-10.8)
[2016-11-25 08:08] LABS: HEMOGLOBIN 6.7 g/dl (12.0-16.0)
[2016-11-25 08:40] VITALS: BP 111/59; PULSE 76; RESP 18
[2016-11-25] MEDS: SENNA/DOCUSATE NA (8.6MG/50MG) TAB PO SCH (09:00)
--- NOTE | 2016-11-25 16:03 | PN ---
Date/Time of Note Date/Time of Note DATE: 11/25/16 TIME: 16:03 OB Subjective Subjective Subjective day 2 Afebrile vital signs stable abdomen soft uterus firm lochia normal extremity normal ambulation encouraged Laboratory Tests Test 11/25/16 06:50 White Blood Count 9.610^3/ul Red Blood Count 3.3610^6/ul Hemoglobin 6.7g/dl Hematocrit 23.6% Mean Corpuscular Volume 70.2fl Mean Corpuscular Hemoglobin 19.9pg Mean Corpuscular Hemoglobin Concent 28.4g/dl Red Cell Distribution Width 19.9% Platelet Count 70281^3/UL Mean Platelet Volume 11.2fl Neutrophils % 55.6% Lymphocytes % 31.4% Monocytes % 9.7% Eosinophils % 2.0% Basophils % 0.3% Nucleated Red Blood Cells % 0.0/100WBC Neutrophils # 5.310^3/ul Lymphocytes # 3.010^3/ul Monocytes # 0.910^3/ul Eosinophils # 0.210^3/ul Basophils # 0.010^3/ul Nucleated Red Blood Cells # 0.010^3/ul Current Medications Medications (Trade) Dose Ordered Sig/Wayne Route PRN Reason Start Time Stop Time Status Last Admin Dose Admin Lactated Ringer's (Lr) 1,000 ml @ 125 mls/hr Q8H IV 11/21/16 14:14 11/24/16 10:28 DC 11/23/16 13:17 Dinoprostone (Cervidil Vaginal Supp) 10 mg ONCE ONCE VAG 11/21/16 14:30 11/21/16 14:31 DC 11/21/16 14:29 Butorphanol Tartrate (Stadol) 2 mg Q2H PRN IV PAIN 11/21/16 14:30 11/24/16 10:28 DC 11/22/16 06:16 Lidocaine 30 ml 30 ml ONCE PRN INJ EPISIOTOMY/TEARING 11/21/16 14:30 11/24/16 10:28 DC Oxytocin/Lactated Ringer's 500 ml @ 125 mls/hr ONCE -MAY REPEAT X1 IV 11/21/16 14:30 11/24/16 10:28 DC 11/24/16 07:31 Oxytocin/Lactated Ringer's 500 ml @ 125 mls/hr ONCE IV 11/21/16 14:30 11/24/16 10:28 DC 11/24/16 08:12 Ibuprofen 600 mg 600 mg ONCE PRN PO Mild Pain (Pain Score 1-3) 11/21/16 14:30 11/24/16 10:28 DC 11/24/16 10:17 Lactated Ringer's 1,000 ml @ 2,000 mls/hr Q30M PRN IV PRE-EPIDURAL BOLUS 11/21/16 16:00 11/24/16 10:29 DC Oxytocin/Lactated Ringer's 500 ml @ 0 mls/hr ONCE PRN IV For Hemorrhage Management 11/21/16 14:30 11/24/16 10:29 DC Methylergonovine Maleate (Methergine) 0.2 mg ONCE PRN IM VAGINAL BLEEDING 11/21/16 14:30 11/24/16 10:29 DC Carboprost Tromethamine (Hemabate) 250 mcg ONCE PRN IM VAGINAL BLEEDING 11/21/16 14:30 11/24/16 10:29 DC Misoprostol 1000 mcg 1,000 mcg ONCE PRN DC VAGINAL BLEEDING 11/21/16 14:30 11/24/16 10:29 DC 11/24/16 07:32 Ampicillin 100 ml @ 100 mls/hr ONCE ONCE IV 11/21/16 15:00 11/21/16 15:59 DC 11/21/16 14:46 Ampicillin (Ampicillin 1 Gm/ NS (Pmx)) 50 ml @ 100 mls/hr Q4H IV 11/21/16 19:00 11/23/16 19:07 DC 11/23/16 15:12 Dinoprostone (Cervidil Vaginal Supp) 10 mg ONCE ONCE VAG 11/22/16 03:30 11/22/16 03:31 DC 11/22/16 03:33 Dinoprostone 10 mg 10 mg ONCE ONCE VAG 11/22/16 16:00 11/22/16 16:01 DC 11/22/16 17:08 Cefazolin Sodium/ Dextrose 50 ml @ ud STK-MED ONCE IVPB 11/22/16 17:41 11/22/16 17:42 DC Fentanyl/ Ropivacaine 100 ml @ ud STK-MED ONCE .ROUTE 11/23/16 03:10 11/23/16 03:11 DC Naloxone HCl (Narcan) 0.1 mg Q2M PRN IV FOR RESP RATE 8 OR LESS 11/23/16 06:30 11/24/16 06:29 DC Diphenhydramine HCl (Benadryl) 25 mg Q6H PRN IV ITCHING 11/23/16 06:30 11/24/16 06:29 DC Ondansetron HCl (Zofran Inj) 4 mg Q6H PRN IV NAUSEA AND/OR VOMITING 11/23/16 06:30 11/24/16 06:29 DC Fentanyl/ Ropivacaine 100 ml 100 ml EPIDURAL INFUSION EPI 11/23/16 06:30 11/24/16 10:28 DC 11/24/16 02:19 Dextrose/Lactated Ringer's 1,000 ml @ 125 mls/hr Q8H IV 11/23/16 15:00 11/24/16 10:28 DC 11/24/16 02:19 Oxytocin/Lactated Ringer's 500 ml @ 0 mls/hr Q0M IV 11/23/16 15:00 11/24/16 10:28 DC Oxytocin/Lactated Ringer's 500 ml @ 125 mls/hr Q4H IV 11/24/16 10:24 11/24/16 12:41 DC Ibuprofen (Motrin) 600 mg Q6 PO 11/24/16 12:00 11/25/16 05:38 Acetaminophen (Tylenol Tab) 650 mg Q4H PRN PO PAIN LEVEL 1-5 11/24/16 10:30 Acetaminophen/ Codeine Phosphate (Tylenol No.3) 1 tab Q4H PRN PO PAIN LEVEL 1-5 11/24/16 10:30 Acetaminophen/ Codeine Phosphate (Tylenol No.3) 2 tab Q4H PRN PO PAIN LEVEL 6-10 11/24/16 10:30 11/24/16 11:18 Oxycodone/Aspirin (Percodan) 1 tab Q3H PRN PO PAIN LEVEL 1-5 11/24/16 10:30 Oxycodone/Aspirin (Percodan) 2 tab Q3H PRN PO PAIN LEVEL 6-10 11/24/16 10:30 Ondansetron HCl (Zofran Inj) 4 mg Q6H PRN IV NAUSEA AND/OR VOMITING 11/24/16 10:30 Senna/Docusate Sodium (Senokot-S) 1 tab BID PO 11/24/16 21:00 11/24/16 21:57 Witch Romi/ Glycerin (Tucks Pads) 1 pad BEDSIDE MEDICATION PRN DC HEMORRHOID/EPISIOTMY PAIN 11/24/16 10:30 11/24/16 11:18 Benzocaine (Dermoplast [place]) 1 spray BEDSIDE MEDICATION PRN TOP HEMORRHOID/EPISIOTMY PAIN 11/24/16 10:30 11/24/16 11:18 Dibucaine (Nupercainal) 1 applic BEDSIDE MEDICATION PRN DC HEMORRHOID/EPISIOTMY PAIN 11/24/16 10:30 Lanolin (Gqm-W-Rhdbya) 1 applic BEDSIDE MEDICATION PRN TOP BEDSIDE FOR WOODROW TO NIPPLES 11/24/16 10:30 11/24/16 11:18 Measles/Mumps/ Rubella Vaccine Live (Mmr Ii Vaccine) 0.5 ml ONCE ONCE SC* 11/26/16 09:00 11/26/16 09:01 SARA OLIVARES MD Nov 25, 2016 16:03
[2016-11-25 16:07] VITALS: BP 101/70; PULSE 70; RESP 18
[2016-11-25 20:00] VITALS: BP 110/66; PULSE 87; RESP 18
[2016-11-26] MEDS: IBUPROFEN 600 MG TAB PO SCH ×3 (05:53→13:01)
[2016-11-26 08:00] VITALS: BP 122/77; RESP 18
[2016-11-26] MEDS: SENNA/DOCUSATE NA (8.6MG/50MG) TAB PO SCH (09:00)
[2016-11-26] MEDS ORDERED: MEASLES,MUMPS,RUBELLA VACCINE INJ SC* ONE (09:00)
--- NOTE | 2016-11-26 11:32 | PD.PPDC ---
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 Patient Condition: Good Diet Diet: Resume Regular Diet Activity/Restrictions Activity: Normal Activity May Shower Restrictions: No Exercising No Lifting No Driving No Sexual Activity Nothing in the Vagina No [place] No Tampons, douche Follow-up Follow-up with Physician: 2, Week/Weeks Provider Information: instructions given patient advised to make appointment to be seen at the clinic in 2 weeks for check Current Medications Medications (Trade) Dose Ordered Sig/Wayne Route PRN Reason Start Time Stop Time Status Last Admin Dose Admin Lactated Ringer's (Lr) 1,000 ml @ 125 mls/hr Q8H IV 11/21/16 14:14 11/24/16 10:28 DC 11/23/16 13:17 Dinoprostone (Cervidil Vaginal Supp) 10 mg ONCE ONCE VAG 11/21/16 14:30 11/21/16 14:31 DC 11/21/16 14:29 Butorphanol Tartrate (Stadol) 2 mg Q2H PRN IV PAIN 11/21/16 14:30 11/24/16 10:28 DC 11/22/16 06:16 Lidocaine 30 ml 30 ml ONCE PRN INJ EPISIOTOMY/TEARING 11/21/16 14:30 11/24/16 10:28 DC Oxytocin/Lactated Ringer's 500 ml @ 125 mls/hr ONCE -MAY REPEAT X1 IV 11/21/16 14:30 11/24/16 10:28 DC 11/24/16 07:31 Oxytocin/Lactated Ringer's 500 ml @ 125 mls/hr ONCE IV 11/21/16 14:30 11/24/16 10:28 DC 11/24/16 08:12 Ibuprofen 600 mg 600 mg ONCE PRN PO Mild Pain (Pain Score 1-3) 11/21/16 14:30 11/24/16 10:28 DC 11/24/16 10:17 Lactated Ringer's 1,000 ml @ 2,000 mls/hr Q30M PRN IV PRE-EPIDURAL BOLUS 11/21/16 16:00 11/24/16 10:29 DC Oxytocin/Lactated Ringer's 500 ml @ 0 mls/hr ONCE PRN IV For Hemorrhage Management 11/21/16 14:30 11/24/16 10:29 DC Methylergonovine Maleate (Methergine) 0.2 mg ONCE PRN IM VAGINAL BLEEDING 11/21/16 14:30 11/24/16 10:29 DC Carboprost Tromethamine (Hemabate) 250 mcg ONCE PRN IM VAGINAL BLEEDING 11/21/16 14:30 11/24/16 10:29 DC Misoprostol 1000 mcg 1,000 mcg ONCE PRN CO VAGINAL BLEEDING 11/21/16 14:30 11/24/16 10:29 DC 11/24/16 07:32 Ampicillin 100 ml @ 100 mls/hr ONCE ONCE IV 11/21/16 15:00 11/21/16 15:59 DC 11/21/16 14:46 Ampicillin (Ampicillin 1 Gm/ NS (Pmx)) 50 ml @ 100 mls/hr Q4H IV 11/21/16 19:00 11/23/16 19:07 DC 11/23/16 15:12 Dinoprostone (Cervidil Vaginal Supp) 10 mg ONCE ONCE VAG 11/22/16 03:30 11/22/16 03:31 DC 11/22/16 03:33 Dinoprostone 10 mg 10 mg ONCE ONCE VAG 11/22/16 16:00 11/22/16 16:01 DC 11/22/16 17:08 Cefazolin Sodium/ Dextrose 50 ml @ ud STK-MED ONCE IVPB 11/22/16 17:41 11/22/16 17:42 DC Fentanyl/ Ropivacaine 100 ml @ ud STK-MED ONCE .ROUTE 11/23/16 03:10 11/23/16 03:11 DC Naloxone HCl (Narcan) 0.1 mg Q2M PRN IV FOR RESP RATE 8 OR LESS 11/23/16 06:30 11/24/16 06:29 DC Diphenhydramine HCl (Benadryl) 25 mg Q6H PRN IV ITCHING 11/23/16 06:30 11/24/16 06:29 DC Ondansetron HCl (Zofran Inj) 4 mg Q6H PRN IV NAUSEA AND/OR VOMITING 11/23/16 06:30 11/24/16 06:29 DC Fentanyl/ Ropivacaine 100 ml 100 ml EPIDURAL INFUSION EPI 11/23/16 06:30 11/24/16 10:28 DC 11/24/16 02:19 Dextrose/Lactated Ringer's 1,000 ml @ 125 mls/hr Q8H IV 11/23/16 15:00 11/24/16 10:28 DC 11/24/16 02:19 Oxytocin/Lactated Ringer's 500 ml @ 0 mls/hr Q0M IV 11/23/16 15:00 11/24/16 10:28 DC Oxytocin/Lactated Ringer's 500 ml @ 125 mls/hr Q4H IV 11/24/16 10:24 11/24/16 12:41 DC Ibuprofen (Motrin) 600 mg Q6 PO 11/24/16 12:00 11/26/16 05:53 Acetaminophen (Tylenol Tab) 650 mg Q4H PRN PO PAIN LEVEL 1-5 11/24/16 10:30 Acetaminophen/ Codeine Phosphate (Tylenol No.3) 1 tab Q4H PRN PO PAIN LEVEL 1-5 11/24/16 10:30 Acetaminophen/ Codeine Phosphate (Tylenol No.3) 2 tab Q4H PRN PO PAIN LEVEL 6-10 11/24/16 10:30 11/24/16 11:18 Oxycodone/Aspirin (Percodan) 1 tab Q3H PRN PO PAIN LEVEL 1-5 11/24/16 10:30 Oxycodone/Aspirin (Percodan) 2 tab Q3H PRN PO PAIN LEVEL 6-10 11/24/16 10:30 Ondansetron HCl (Zofran Inj) 4 mg Q6H PRN IV NAUSEA AND/OR VOMITING 11/24/16 10:30 Senna/Docusate Sodium (Senokot-S) 1 tab BID PO 11/24/16 21:00 11/24/16 21:57 Witch Romi/ Glycerin (Tucks Pads) 1 pad BEDSIDE MEDICATION PRN CO HEMORRHOID/EPISIOTMY PAIN 11/24/16 10:30 11/24/16 11:18 Benzocaine (Dermoplast Banner) 1 spray BEDSIDE MEDICATION PRN TOP HEMORRHOID/EPISIOTMY PAIN 11/24/16 10:30 11/24/16 11:18 Dibucaine (Nupercainal) 1 applic BEDSIDE MEDICATION PRN CO HEMORRHOID/EPISIOTMY PAIN 11/24/16 10:30 Lanolin (Rif-Q-Bzmnwg) 1 applic BEDSIDE MEDICATION PRN TOP BEDSIDE FOR WOODROW TO NIPPLES 11/24/16 10:30 11/24/16 11:18 Measles/Mumps/ Rubella Vaccine Live (Mmr Ii Vaccine) 0.5 ml ONCE ONCE SC* 11/26/16 09:00 11/26/16 09:01 DC 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
--- NOTE | 2016-11-26 11:36 | DS ---
Date/Time of Note Date/Time of Note DATE: 11/26/16 TIME: 11:33 Discharge Summary Admission/Discharge Info Admit Date/Time November 21, 2016 at 12:40 Discharge Date/Time November 26, 2016 at 11:30 AM Final Diagnosis Day 2 post normal spontaneous vaginal delivery Patient Condition: Good Procedures Normal spontaneous vaginal delivery Hx of Present Illness Term admitted to the hospital had normal vaginal delivery Hospital Course Uneventful satisfactory Home Meds Reported Medications Multivit/Min/Fol Ac/Iron/Pren* ( S*) 1 Tab Tab, 1 TAB PO DAILY, TAB 09/30/16 Follow-up Plan instructions given recommended to make appointment to be seen at the clinic in 2 weeks Primary Care Provider Nancy Espinosa Time spent on discharge: < 30 minutes SARA OLIVARES MD Nov 26, 2016 11:36
--- NOTE | 2016-11-26 11:53 | QN ---
Documentation Comment This patient is being discharged after normal vaginal delivery 2 days ago her hemoglobin on admission 7.3 post delivery hemoglobin 6.7 patient denies being lightheaded seems stable when ambulating , blood transfusion to increase the hemoglobin to 10 with 2 units of packed cells discussed with the patient declined transfusion states she is stable when walking ,prefers to continue taking iron supplement versus transfusion SARA OLIVARES MD Nov 26, 2016 11:53
== END 2016-11-26 15:48 | disposition home or self-care (01) | DRG 774 ==
LOC: OBT 11:31 → L-D 11:34 → OBT 12:40 → L-D 12:40 → PP1 11-24 10:17
PROVIDERS: ADMIT Obstetrics & Gynecology; ATTEND Obstetrics & Gynecology
PROC: 10E0XZZ Delivery of Products of Conception, External Approach (ICD-10-PCS; principal; 2016-11-24)
PROC: 0UQGXZZ Repair Vagina, External Approach (ICD-10-PCS; 2016-11-24)
PROC: 3E0P7GC Introduction of Other Therapeutic Substance into Female Reproductive, Via Natural or Artificial Opening (ICD-10-PCS; 2016-11-24)
PROC: 3E033VJ Introduction of Other Hormone into Peripheral Vein, Percutaneous Approach (ICD-10-PCS; 2016-11-24)
DX: O14.93 Unspecified pre-eclampsia, third trimester (principal); Z68.41 Body mass index [BMI] 40.0-44.9, adult; E66.01 Morbid (severe) obesity due to excess calories; O13.3 Gestational [pregnancy-induced] hypertension without significant proteinuria, third trimester; O90.81 Anemia of the puerperium; O62.3 Precipitate labor; Z3A.39 39 weeks gestation of pregnancy; Z37.0 Single live birth; O99.213 Obesity complicating pregnancy, third trimester
CPT/HCPCS: 62319; 80053; 80307; 84560; 85025; 85610; 85730; 86592; 86850; 86900; 86901; 86920; 87340; G0463; J0290; J0595; J0690; J2590; J3010; J7120; J7121

== ENCOUNTER 2017-02-15 01:54 | Emergency (ER) | payer OTHER ==
[~2017-02-15] VITALS: Ht 165.1 cm; Wt 101.5 kg
[2017-02-15 02:07] VITALS: Ht 165.1 cm; Wt 101.5 kg
--- NOTE | 2017-02-15 02:47 | ERD ---
ER Documentation Chief Complaint Date/Time DATE: 02/15/17 TIME: 02:45 Chief Complaint pelvic pain started 2 days ago HPI 21-year-old female presents here in emergency department for complaints of pelvic pain for 2 days. Patient recently new that she was one week ago. Patient has irregular menses. Patient is 6 para 3 2. Patient unable to remember her last menstruation, possibly 2 months ago. Patient describes the pain as pelvic pain cramping pain 4/10 scale, not better or worse with anything. Patient denies any hematuria or dysuria. Patient denies any fever or chills. ROS All systems reviewed and are negative except as per history of present illness. Medications Home Meds Reported Medications Multivit/Min/Fol Ac/Iron/Pren* ( S*) 1 Tab Tab, 1 TAB PO DAILY, TAB 09/30/16 Allergies Allergies: Coded Allergies: No Known Allergies (Verified Allergy, Unknown, 11/19/16) PMhx/Soc History of Surgery: Yes (Appendectomy, kidney biopsy) Anesthesia Reaction: No Hx Neurological Disorder: No Hx Respiratory Disorders: No Hx Cardiac Disorders: No Hx Psychiatric Problems: No Hx Miscellaneous Medical Probl: No Hx Alcohol Use: No Hx Substance Use: No Hx Tobacco Use: No Smoking Status: Never smoker FmHx Family History: No coronary disease, No diabetes, No other Physical Exam Vitals Vital Signs Date Time Temp Pulse Resp B/P Pulse Ox O2 Delivery O2 Flow Rate FiO2 02/15/17 02:07 97.8 98 20 112/65 100 Physical Exam GENERAL: The patient is well developed and appropriate for usual state of health, in no apparent distress. CHEST: Clear to auscultation bilaterally. There are no rales, wheezes or rhonchi. HEART: Regular rate and rhythm. No murmurs, clicks, rubs or gallops. No S3 or S4. ABDOMEN: Soft, nontender and nondistended. Good bowel sounds. No rebound or guarding. No gross peritonitis. No gross organomegaly or masses. No Santo sign or McBurney point tenderness. BACK: No midline or flank tenderness. EXTREMITIES: Equal pulses bilaterally. There is no peripheral clubbing, cyanosis or edema. No focal swelling or erythema. Full range of motion. Grossly neurovascularly intact. NEURO: Alert and oriented. Cranial nerves 2-12 intact. Motor strength in all 4 extremities with 5/5 strength. Sensation grossly intact. Normal speech and gait. SKIN: There is no apparent rash or petechia. The skin is warm and dry. HEMATOLOGIC AND LYMPHATIC: There is no evidence of excessive bruising or lymphedema. No gross cervical, axillary, or inguinal lymphadenopathy. Result Diagram: 02/15/17 0245 02/15/17 0245 Results 24 hrs Laboratory Tests Test 02/15/17 02:45 White Blood Count 11.910^3/ul Red Blood Count 5.0910^6/ul Hemoglobin 11.6g/dl Hematocrit 39.3% Mean Corpuscular Volume 77.2fl Mean Corpuscular Hemoglobin 22.8pg Mean Corpuscular Hemoglobin Concent 29.5g/dl Red Cell Distribution Width 19.8% Platelet Count 56273^3/UL Mean Platelet Volume 10.7fl Neutrophils % 49.5% Lymphocytes % 36.8% Monocytes % 8.9% Eosinophils % 3.9% Basophils % 0.6% Nucleated Red Blood Cells % 0.0/100WBC Neutrophils # (Manual) 610^3/ul Lymphocytes # 4.410^3/ul Monocytes # 1.110^3/ul Eosinophils # 0.510^3/ul Basophils # 0.110^3/ul Nucleated Red Blood Cells # 0.010^3/ul Urine Color YELLOW Urine Clarity CLOUDY Urine pH 5.0 Urine Specific [place] 1.029 Urine Ketones NEGATIVEmg/dL Urine Nitrite NEGATIVEmg/dL Urine Bilirubin NEGATIVEmg/dL Urine Urobilinogen 1+mg/dL Urine Leukocyte Esterase 3+Milad/ul Urine Microscopic RBC 9/HPF Urine Microscopic WBC 89/HPF Urine Squamous Epithelial Cells FEW/HPF Urine Bacteria FEW/HPF Urine Mucus MANY/HPF Urine Hemoglobin NEGATIVEmg/dL Urine Glucose NEGATIVEmg/dL Urine Total Protein NEGATIVEmg/dl Sodium Level 144mmol/L Potassium Level 3.4mmol/L Chloride Level 104mmol/L Carbon Dioxide Level 25mmol/L Anion Gap 18 Blood Urea Nitrogen 15mg/dl Creatinine 0.85mg/dl Glucose Level 84mg/dl Calcium Level 9.8mg/dl Total Bilirubin 0.1mg/dl Direct Bilirubin 0.00mg/dl Indirect Bilirubin 0.1mg/dl Aspartate Amino Transf (AST/SGOT) 21IU/L Alanine Aminotransferase (ALT/SGPT) 33IU/L Alkaline Phosphatase 96IU/L Total Protein 8.8g/dl Albumin 4.7g/dl Globulin 4.10g/dl Albumin/Globulin Ratio 1.14 Beta HCG, Quantitative < 2.4mIU/ml PROCEDURE: Pelvic ultrasound, limited. CLINICAL INDICATION: Pelvic pain. TECHNIQUE: Multiple sonographic images of the pelvis were obtained utilizing a transabdominal technique. The images were reviewed on a PACS workstation. COMPARISON: None. FINDINGS: The uterus is visualized and measures 7.5 x 4.2 x 8.3 cm. No abnormal uterine mass is identified. The endometrial echo complex is homogeneous and measures 13.8 mm. There is no evidence for free fluid. The right ovary has a normal echotexture and measures 3.5 x 2.0 x 2.5 cm. The left ovary has a normal echotexture and measures 3.9 x 2.2 x 2.4 cm. There is normal flow to both ovaries. No adnexal masses are identified. IMPRESSION: Unremarkable pelvic ultrasound. .Dwayne Mar MD, MD Date Time Electronically viewed and signed by .Dwyane Mar MD, on 02/15/2017 03:40 Procedures/MDM Medical Decision Making: Patient symptoms of pelvic pain most likely consistent with urinary tract infection. No noted, beta hCG is negative for . Pelvic ultrasound does not show any abnormalities. No suspicion for ectopy . There is low suspicion for abdominal emergencies at this time. Patients abdominal exam is normal at this time. Patients radiology exam does not show any abdominal emergencies at this time. There is low suspicion for appendicitis, cholecystitis, abdominal aortic aneurysms or peritonitis at this time. There is low suspicion for sepsis. Patient appears well and is hemodynamically stable. Disposition: Home. Condition: Stable Prescription Pyridium, Keflex Instructions: Patient is advised to take medications as prescribed. Patient is advised to rest, increase fluid intake and do brat diet for next 1-2 days and progress as tolerated. Patient is advised that if symptoms are worse, severe abdominal pain, uncontrolled vomiting, high fever, severe flank pain, worst signs and symptoms, to return to the emergency department immediately. Otherwise, patient can follow up with primary care doctor in 5-7 days. Departure Diagnosis: Primary Impression: UTI (urinary tract infection) Urinary tract infection type: acute cystitis Hematuria presence: with hematuria Qualified Code: N30.01 - Acute cystitis with hematuria Condition: Stable Patient Instructions: Understanding Urinary Tract Infections (UTIs) Additional Instructions: Patient is advised to take medications as prescribed. Patient is advised to rest , increase fluid intake and do brat diet for next 1-2 days and progress as tolerated. Patient is advised that if symptoms are worse, severe abdominal pain , uncontrolled vomiting, high fever, severe flank pain, worst signs and symptoms , to return to the emergency department immediately. Otherwise, patient can follow up with primary care doctor in 5-7 days. RADHA HILL NP Feb 15, 2017 02:47
[2017-02-15 03:02] LABS: BASOPHIL # 0.1 10^3/ul (0.0-0.1); BASOPHILS % 0.6 % (0.0-2.0); EOSINOPHILS # 0.5 10^3/ul (0.0-0.5); EOSINOPHILS % 3.9 % (0.0-7.0); HEMATOCRIT 39.3 % (37.0-47.0); HEMOGLOBIN 11.6 g/dl (12.0-16.0); LYMPHOCYTES # 4.4 10^3/ul (0.8-2.9); LYMPHOCYTES % 36.8 % (15.0-51.0); MEAN CORPUSCULAR HEMOGLOBIN 22.8 pg (29.0-33.0); MEAN CORPUSCULAR HGB CONC 29.5 g/dl (32.0-37.0); MEAN CORPUSCULAR VOLUME 77.2 fl (82.0-101.0); MEAN PLATELET VOLUME 10.7 fl (7.4-10.4); MONOCYTE # 1.1 10^3/ul (0.3-0.9); MONOCYTES % 8.9 % (0.0-11.0); NEUTROPHILS % 49.5 % (39.0-77.0); PLATELET COUNT 501 10^3/UL (140-415); RED BLOOD COUNT 5.09 10^6/ul (4.20-5.40); RED CELL DISTRIBUTION WIDTH 19.8 % (11.5-14.5); WHITE BLOOD COUNT 11.9 10^3/ul (4.8-10.8)
[2017-02-15 03:22] LABS: ALBUMIN 4.7 g/dl (3.3-4.9); ALBUMIN/GLOBULIN RATIO 1.14; BILIRUBIN,INDIRECT 0.1 mg/dl (0-1.1); BILIRUBIN,TOTAL 0.1 mg/dl (0.2-1.3); CALCIUM 9.8 mg/dl (8.4-10.2); CREATININE 0.85 mg/dl (0.44-1.00); POTASSIUM 3.4 mmol/L (3.5-5.1); TOTAL PROTEIN 8.8 g/dl (6.1-8.1)
--- NOTE | 2017-02-15 03:40 | RADRPT ---
PROCEDURE: Pelvic ultrasound, limited. CLINICAL INDICATION: Pelvic pain. TECHNIQUE: Multiple sonographic images of the pelvis were obtained utilizing a transabdominal tyra hnique. The images were reviewed on a PACS workstation. COMPARISON: None. FINDINGS: The uterus is visualized and measures 7.5 x 4.2 x 8.3 cm. No abnormal uterine mass is identified. T he endometrial echo complex is homogeneous and measures 13.8 mm. There is no evidence for free fluid. The right ovary has a normal echotexture and measures 3.5 x 2. 0 x 2.5 cm. The left ovary has a normal echotexture and measures 3.9 x 2.2 x 2.4 cm. There is norm al flow to both ovaries. No adnexal masses are identified. IMPRESSION: Unremarkable pelvic ultrasound. .Dwayne Mar MD, MD Date Time Electronically viewed and signed by .Dwayne Mar MD, MD on 02/15/2017 03:40 .T/
[2017-02-15 04:39] LABS: ADD UMIC YES; UR ASCORBIC ACID NEGATIVE (NEGATIVE); UR BACTERIA FEW /HPF (NONE SEEN); UR BILIRUBIN (Dip) NEGATIVE (NEGATIVE); UR BLOOD (Dip) NEGATIVE (NEGATIVE); UR CLARITY CLOUDY (CLEAR); UR COLOR YELLOW (YELLOW); UR GLUCOSE (Dip) NEGATIVE (NEGATIVE); UR KETONES (Dip) NEGATIVE (NEGATIVE); UR LEUKOCYTE ESTERASE (Dip) 3+ Leu/ul (NEGATIVE); UR MUCUS MANY /HPF (NONE SEEN); UR NITRITE (Dip) NEGATIVE (NEGATIVE); UR RBC 9 /HPF (0-5); UR SPECIFIC GRAVITY (Dip) 1.029 (1.003-1.030); UR SQUAMOUS EPITHELIAL CELL FEW /HPF (FEW); UR TOTAL PROTEIN (Dip) NEGATIVE (NEGATIVE); UR UROBILINOGEN (Dip) 1+ mg/dL (NEGATIVE)
[2017-02-15] MEDS ORDERED: CEPH-443 PO (04:42)
[2017-02-15] MEDS ORDERED: PHEN-538 PO (04:42)
[2017-02-15 04:59] VITALS: BP 118/77; PULSE 70; RESP 18; TEMP 98
== END 2017-02-15 05:00 | disposition home or self-care (01) ==
LOC: FTE 01:54
DX: N30.01 Acute cystitis with hematuria (principal)
CPT/HCPCS: 36415; 76856; 80053; 81001; 84702; 85025; 86900; 86901; Z7502

== ENCOUNTER 2017-05-09 20:00 | Emergency (ER) | payer SELFPAY ==
[~2017-05-09 20:00] MED LIST changes: +CEPH-443 PO; +PHEN-538 PO
== END 2017-05-09 21:00 | disposition left against medical advice (07) ==
LOC: E/R 20:00
DX: Z53.21 Procedure and treatment not carried out due to patient leaving prior to being seen by health care provider (principal)

== ENCOUNTER 2017-05-18 20:54 | Emergency (ER) | payer OTHER ==
[~2017-05-18] VITALS: Ht 167.6 cm; Wt 100.7 kg
[2017-05-18 21:07] VITALS: Ht 167.6 cm; Wt 100.7 kg
--- NOTE | 2017-05-18 23:54 | RADRPT ---
PROCEDURE: Ultrasound of the pelvis. CLINICAL INDICATION: Trauma TECHNIQUE: Transabdominal and transvaginal ultrasound of the pelvis was performed. COMPARISON: There are no similar studies submitted for comparison. FINDINGS: LAST MENSTRUAL PERIOD: 04/08/2017 UTERUS and GESTATIONAL SAC Uterus: A single intrauterine gestational sac is seen. There is no definite pole or card iac activity. Mean gestational sac diameter: 9.9 mm; estimated gestational age 5 weeks 4 days. Yolk sac: Present Subchorionic hemorrhage: There is a large subchorionic hemorrhage which wraps around much of the ges tational sac. OVARIES Right ovary: 3.2 x 1.5 x 1.5 cm Findings: There is Doppler flow to the right ovary.There is no ovarian lesion or cyst. Left ovary: 3.9 x 2.5 x 2.5 cm Findings: There is Doppler flow to the left ovary. A 2.4 cm corpus luteum is noted in the left ovar y. Cul-de-sac: No free fluid. IMPRESSION: Single early intrauterine gestational sac of approximately 5 weeks 4 days with large subchorionic he morrhage. RPTAT: HIKT .Good Goldman MD, Date Time Electronically viewed and signed by .Good Goldman MD, on 05/18/2017 23:54 .T/
[2017-05-19 00:42] LABS: BASOPHIL # 0.1 10^3/ul (0.0-0.1); BASOPHILS % 0.6 % (0.0-2.0); EOSINOPHILS # 0.2 10^3/ul (0.0-0.5); EOSINOPHILS % 1.6 % (0.0-7.0); HEMATOCRIT 35.4 % (37.0-47.0); HEMOGLOBIN 11.4 g/dl (12.0-16.0); LYMPHOCYTES # 3.8 10^3/ul (0.8-2.9); MEAN CORPUSCULAR HEMOGLOBIN 24.6 pg (29.0-33.0); MEAN CORPUSCULAR HGB CONC 32.2 g/dl (32.0-37.0); MEAN CORPUSCULAR VOLUME 76.3 fl (82.0-101.0); MEAN PLATELET VOLUME 10.5 fl (7.4-10.4); MONOCYTE # 0.9 10^3/ul (0.3-0.9); MONOCYTES % 7.6 % (0.0-11.0); NEUTROPHIL # 6.5 10^3/ul (1.6-7.5); NEUTROPHILS % 56.9 % (39.0-77.0); PLATELET COUNT 476 10^3/UL (140-415); RED BLOOD COUNT 4.64 10^6/ul (4.20-5.40); RED CELL DISTRIBUTION WIDTH 18.6 % (11.5-14.5); WHITE BLOOD COUNT 11.4 10^3/ul (4.8-10.8)
[2017-05-19 01:28] LABS: ADD UMIC YES; UR ASCORBIC ACID 20 mg/dL (NEGATIVE); UR BACTERIA FEW /HPF (NONE SEEN); UR BILIRUBIN (Dip) NEGATIVE (NEGATIVE); UR BLOOD (Dip) NEGATIVE (NEGATIVE); UR CLARITY CLEAR (CLEAR); UR COLOR YELLOW (YELLOW); UR GLUCOSE (Dip) NEGATIVE (NEGATIVE); UR KETONES (Dip) NEGATIVE (NEGATIVE); UR LEUKOCYTE ESTERASE (Dip) TRACE Leu/ul (NEGATIVE); UR MUCUS FEW /HPF (NONE SEEN); UR NITRITE (Dip) NEGATIVE (NEGATIVE); UR RBC 1 /HPF (0-5); UR SPECIFIC GRAVITY (Dip) 1.026 (1.003-1.030); UR TOTAL PROTEIN (Dip) NEGATIVE (NEGATIVE); UR UROBILINOGEN (Dip) NEGATIVE (NEGATIVE)
[2017-05-19] MEDS ORDERED: ACET500C5 PO (01:28)
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
[2017-05-19] MEDS ORDERED: PREN-93 PO (01:37)
== END 2017-05-19 02:35 | disposition left against medical advice (07) ==
LOC: FTE 20:54
DX: O26.891 Other specified pregnancy related conditions, first trimester (principal); R10.2 Pelvic and perineal pain; O41.8X10 Other specified disorders of amniotic fluid and membranes, first trimester, not applicable or unspecified; Z3A.01 Less than 8 weeks gestation of pregnancy
CPT/HCPCS: 76801; 76817; 81001; 84702; 85025; 86900; 86901; Z7502

== ENCOUNTER 2017-09-14 16:40 | Outpatient (CLI) | END 2017-09-14 18:59 | disposition home or self-care (01) ==

== ENCOUNTER 2017-12-12 13:49 | Outpatient (CLI) | END 2017-12-12 18:22 | disposition home or self-care (01) ==

== ENCOUNTER 2017-12-16 15:32 | Outpatient (CLI) | END 2017-12-16 18:15 | disposition home or self-care (01) ==

== ENCOUNTER 2017-12-25 15:27 | Outpatient (CLI) | END 2017-12-25 20:10 | disposition home or self-care (01) ==

== ENCOUNTER 2017-12-30 01:13 | Outpatient (CLI) | END 2017-12-30 04:25 | disposition home or self-care (01) ==

== ENCOUNTER 2018-01-08 01:30 | Inpatient (IN) | END 2018-01-14 13:05 | disposition home or self-care (01) | DRG 775 ==